=== PATIENT | female | born 1950 | race Caucasian/White ===

== ENCOUNTER → 2023-11-22 08:39 | Outpatient (BNVA) | payer MEDICARE, OTHER, SELFPAY | PROVIDERS: PCP Internal Medicine; Referring Provider Internal Medicine; Visit Provider Student in an Organized Health Care Education/Training Program | DX: M17.11 Unilateral primary osteoarthritis, right knee (principal); M17.12 Unilateral primary osteoarthritis, left knee | CPT/HCPCS: 99203 ==

== ENCOUNTER 2024-01-21 05:06 | Outpatient (CLI) | payer MEDICARE, OTHER, SELFPAY ==
[2024-01-21 10:28] LABS: HCT 42.4 % (36.0-46.0); HGB 14.2 g/dL (11.2-15.7); MCH 32.3 pg (27.0-33.0); MCHC 33.5 % (32.0-36.0); MCV 96 fL (80-95); MPV 10.8 fL (8.0-11.0); Platelet Count 259 10^3/uL (130-400); RDW 12.9 % (11.7-14.6); RDW-SD 46.2 fL; WBC 7.88 10^3/uL (4.4-10.8)
[2024-01-21 11:03] LABS: BUN 16 mg/dL (7-18); CREATININE 0.9 mg/dL (0.55-1.02); Calcium 8.9 mg/dL (8.5-10.1); Chloride 106 mmol/L (98-107); Estimated GFR 66.67 (mL/min/1.73m2); Glucose 97 mg/dL (74-106); Potassium 4.4 mmol/L (3.5-5.1); Sodium 144 mmol/L (136-145)
== END 2024-01-21 05:07 | disposition home or self-care (01) ==
LOC: LBO 05:06
PROVIDERS: PCP Internal Medicine; Visit Provider Student in an Organized Health Care Education/Training Program
DX: M17.12 Unilateral primary osteoarthritis, left knee (principal); Z01.818 Encounter for other preprocedural examination; M17.11 Unilateral primary osteoarthritis, right knee
CPT/HCPCS: 36415; 80048; 85027; 77073

== ENCOUNTER 2024-01-21 15:54 | Outpatient (CLI) | payer MEDICARE, OTHER, SELFPAY ==
--- NOTE | 2024-01-21 09:00 | DI.RAD_ITS ---
Exam(s) XR STANDING ALIGNMENT EXAM: XR STANDING ALIGNMENT CLINICAL HISTORY: TKR Planning. TECHNIQUE: 2D digital imaging was performed. Four images were obtained. COMPARISON: CR XR KNEE 3V BILAT-M2 from 09/21/2023 FINDINGS: BONES: The hips are well maintained. In the right knee, there is moderate narrowing both medially an d laterally. Moderate osteophytes are seen in the lateral femoral tibial joint. In the right knee, there is moderate narrowing of the lateral femoral tibial joint space in addition to osteophytes nicholas inally. Note is again made of a sclerotic lesion in the distal metaphysis of the right femur likely reflecting an enchondroma. The ankles are well maintained.There is no significant leg length discrep hang. SOFT TISSUE: Normal. IMPRESSION: Osteoarthritis of the knees bilaterally. DATA REPOSITORY: RADIATION DOSE DELIVERED:
== END 2024-01-21 15:55 | disposition home or self-care (01) ==
LOC: DIORS 15:55
PROVIDERS: PCP Internal Medicine; Visit Provider Physician Assistant
DX: M17.12 Unilateral primary osteoarthritis, left knee (principal); M17.11 Unilateral primary osteoarthritis, right knee; Z01.818 Encounter for other preprocedural examination
CPT/HCPCS: 77073

== ENCOUNTER 2024-01-30 05:53 | Day surgery (SDC) | payer MEDICARE, OTHER, SELFPAY ==
[2024-01-30] VITALS (14 sets, daily range): BP systolic 103–166; BP diastolic 36–84; PULSE 68–84; RESP 12–22; TEMP 36.3–36.7; O2SAT 94–98; BMI 34.9
[2024-01-30] MEDS: Acetaminophen 500 MG TAB 1000 MG PO (06:30)
[2024-01-30] MEDS: Gabapentin 300 MG CAP PO (06:30)
[2024-01-30] MEDS: Celecoxib 200 MG CAP 400 MG PO (06:30)
[2024-01-30] MEDS: Lactated Ringers 1,000 ML 80 ML IV (06:42)
--- NOTE | 2024-01-30 06:42 | ANES.PREOP_ITS ---
General Info Date of Service Date Performed: 01/30/24 Height: 5 ft 4.5 in Weight: 93.7 kg Body Mass Index (BMI): 34.9 Surgical Procedure: Operation Date: 01/30/24 07:40 Proposed Procedure Side Surgeon p Knee Total Arthroplasty w/OrthAlign, Cementless CR (Possible Cemented) Left Jef Hunt MD Meds Allergies and Home Medications Allergies Allergy/AdvReac Type Severity Reaction Status Date / Time epinephrine AdvReac Other (See Verified 01/30/24 06:14 Comment) topical epinephrine Allergy Other (See Uncoded 01/30/24 06:14 Comment) levofloxacin AdvReac tendonitis Uncoded 01/30/24 06:14 Home Medication Medication Instructions Recorded ascorbic acid (vitamin C) 500 mg 500 mg PO DAILY 11/20/23 tablet coenzyme Q10 100 mg capsule (Co 100 mg PO DAILY 11/20/23 Q-10) multivitamin 1 tab PO DAILY 11/20/23 omega 9-ycn-qxd-fish oil 100 1 cap PO DAILY 11/20/23 mg-160 mg-1,000 mg capsule (Fish Oil) simvastatin 20 mg tablet 20 mg PO DAILY 11/20/23 venlafaxine 37.5 mg 37.5 mg PO DAILY 11/20/23 capsule,extended release 24 hr vitamin B complex 1 tab PO DAILY 11/20/23 vit C,K-Zt-jnlivm-lutein-zeaxan 60 1 cap PO DAILY 11/22/23 mg-13.5 mg-15 mg-2 mg-6 mg capsule (Healthy Eyes Lutein-Zeaxanthin) acetaminophen 500 mg tablet 1,000 mg (2 x 500 mg) PO TID #90 01/30/24 tabs aspirin 81 mg tablet,delayed 81 mg PO BID #60 tabs 01/30/24 release celecoxib 200 mg capsule 200 mg PO BID #60 caps 01/30/24 dexamethasone 4 mg tablet 4 mg PO DAILY #2 tabs 01/30/24 gabapentin 300 mg capsule 300 mg PO QHS #14 caps 01/30/24 hydromorphone 2 mg tablet 1 - 2 mg (0.5 - 1 x 2 mg) PO Q4H 01/30/24 PRN pain #20 tabs pantoprazole 40 mg tablet,delayed 40 mg PO DAILY #30 tabs 01/30/24 release Current Visit Medications: Current Medications Generic Name Dose Route Start Last Admin Trade Name Jeisonq PRN Reason Stop Dose Admin Acetaminophen 1,000 mg 01/30/24 06:00 01/30/24 06:30 Acetaminophen 500 Mg Tab PO 02/29/24 05:59 1,000 mg PREOP CORINE Administration Celecoxib 400 mg 01/30/24 06:00 01/30/24 06:30 Celecoxib 200 Mg Cap PO 02/29/24 05:59 400 mg PREOP CORINE Administration Gabapentin 300 mg 01/30/24 06:00 01/30/24 06:30 Gabapentin 300 Mg Cap PO 02/29/24 05:59 300 mg PREOP CORINE Administration Ringer's Solution 1,000 mls @ 80 mls/hr 01/30/24 06:00 IV 02/28/24 23:59 INFUSION CORINE Cefazolin Sodium/Dextrose 2 gm in 50 mls @ 100 mls/hr 01/30/24 06:00 Ancef Duplex IVPB 02/28/24 23:59 PREOP CORINE Tranexamic Acid/Sodium Chloride 1,000 mg in 100 mls @ 600 mls/hr 01/30/24 06:00 IVPB 02/28/24 23:59 PREOP CORINE IV Miscellaneous Supplies 1 each 01/30/24 06:00 Iv Access IV 02/28/24 23:59 DIRECTED CORINE Sodium Chloride 0 ml 01/30/24 06:00 Normal Saline Flush 10 Ml Syr IV 02/28/24 23:59 PRN PRN Sodium Chloride 0 ml 01/30/24 06:00 Normal Saline 10 Ml Vial IJ 02/28/24 23:59 DIRECTED PRN Sterile Water 0 ml 01/30/24 06:00 Water,Injection,Sterile 10 Ml Vial IJ 02/28/24 23:59 DIRECTED PRN PFSH Active Problems Active Problems: Problem Status Onset Code Osteoarthritis of left knee M17.12 Osteoarthritis of right knee M17.11 Urinary incontinence R32 Sensorineural hearing loss H90.5 Obesity E66.9 Hyperlipidemia E78.5 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 COPD (chronic obstructive pulmonary disease) J44.9 Medical History Medical History Nicotine dependence Allergic rhinitis Surgical History Surgical History (Updated 01/28/24 @ 12:14 by Stevenson Estrada) H/O shoulder surgery (L) History of delivery Hx of tonsillectomy History of right oophorectomy History of appendectomy 1975 History of carpal tunnel release 01/03/13, then again 02/14/13 Tobacco Smoking/Tobacco Use Status: Current every day Tobacco Type: cigarettes Alcohol Alcohol Intake: former Substance Use Substance use: Never Substance use type: does not use Vital Signs and Lab Results Vital Signs Most Recent Vital Signs in EMR: Most Recent Vital Signs Temp Pulse Resp BP Pulse Ox 36.6 C 76 16 123/51 L 97 01/30/24 06:17 01/30/24 06:17 01/30/24 06:17 01/30/24 06:17 01/30/24 06:17 Lab Results Blood Type / Crossmatch: No Data to Display Complete Blood Count: White Blood Count 7.88 10^3/uL (4.4-10.8) 01/21/24 10:16 Red Blood Count 4.40 10^6/uL (3.93-5.22) 01/21/24 10:16 Hemoglobin 14.2 g/dL (11.2-15.7) 01/21/24 10:16 Hematocrit 42.4 % (36.0-46.0) 01/21/24 10:16 Platelet Count 259 10^3/uL (130-400) 01/21/24 10:16 Complete Metabolic Panel: Sodium 144 mmol/L (136-145) 01/21/24 10:16 Potassium 4.4 mmol/L (3.5-5.1) 01/21/24 10:16 Chloride 106 mmol/L (98-107) 01/21/24 10:16 Carbon Dioxide 30.0 mmol/L (21.0-32.0) 01/21/24 10:16 BUN 16 mg/dL (7-18) 01/21/24 10:16 Creatinine 0.9 mg/dL (0.55-1.02) 01/21/24 10:16 Est GFR (CKD-EPI 2020) 66.67 (mL/min/1.73m2) 01/21/24 10:16 Calcium 8.9 mg/dL (8.5-10.1) 01/21/24 10:16 Glucose 97 mg/dL (74-106) 01/21/24 10:16 Liver Function Panel: No Data to Display Coagulation Panel: No Data to Display Cardiac Panel: No Data to Display Arterial Blood Gas: No Data to Display Venous Blood Gas: 2 No Data to Display Pancreas Panel: No Data to Display Thyroid Panel: No Data to Display Infectious Disease: No Data to Display Blood Cultures: No Data to Display Toxicology Panel: No Data to Display Anesthesia Assessment and Plan Anesthesia History Personal History: No History of Anesthesia Complications Family History: No Family History of Anesthesia Complications Exercise Tolerance Exercise Tolerance: Metabolic Equivalents>4 Pertinent Negatives Pertinent Negatives: No Symptoms of GERD, No Major Cardiovascular Symptoms or Complaints and No Major Pulmonary Symptoms or Complaints Cardiac & Pulmonary Exam Cardiac Exam: Normal S1/S2 Heart Sounds Pulmonary Exam: Clear Bilateral Breath Sounds Implantable Cardiac Device Does patient have a Pacemaker or an ICD?: No Airway Exam Known Difficult Airway: No Mallampati Class: 2 Mouth Opening: Normal (> 3cm) Thyromental Distance: Greater than 3 cm Neck Range of Motion: Full ROM Neck Circumference: Normal Teeth Condition: Normal Dentition ASA Classification ASA Score: ASA 2 Emergency Case?: No NPO Status NPO Status: NPO Clears >2 hours, Solids >8 hours Anesthesia Plan Resuscitation Status: Full Code Anesthesia Technique: Spinal Anesthesia Airway Planned: Natural Airway Pain Management: Surgeon and patient request nerve block Monitors Used: Standard Monitors
--- NOTE | 2024-01-30 07:03 | PDOC.DSDIS_ITS ---
Date of service: 01/30/24 Time of Service: 07:03 Discharge Plan Disposition Patient Disposition: Home Condition: Good Discharge Details Reason For Visit: L TKR Attending Provider: Jef Hunt Primary Care Provider: Keke Tuttle Home Meds and New Rx's Prescriptions: New celecoxib 200 mg capsule 200 mg PO BID Qty: 60 0RF aspirin 81 mg tablet,delayed release (DR/EC) 81 mg PO BID Qty: 60 0RF acetaminophen 500 mg tablet 1,000 mg PO TID Qty: 90 3RF pantoprazole 40 mg tablet,delayed release (DR/EC) 40 mg PO DAILY Qty: 30 0RF dexamethasone 4 mg tablet 4 mg PO DAILY Qty: 2 0RF gabapentin 300 mg capsule 300 mg PO QHS Qty: 14 0RF morphine 15 mg tablet 7.5 - 15 mg PO Q4H PRNQty: 18 0RF Continued simvastatin 20 mg tablet 20 mg PO DAILY coenzyme Q10 [Co Q-10] 100 mg capsule 100 mg PO DAILY Fish Oil 100-160-1,000 mg capsule 1 cap PO DAILY multivitamin Tablet 1 tab PO DAILY vitamin B complex Tablet 1 tab PO DAILY ascorbic acid (vitamin C) 500 mg tablet 500 mg PO DAILY venlafaxine 37.5 mg capsule,extended release 24hr 37.5 mg PO DAILY Healthy Eyes Lutein-Zeaxanthin 60 mg-13.5 mg- 15 mg-2 mg-6 mg capsule 1 cap PO DAILY Discontinued aspirin [Adult Aspirin Regimen] 81 mg tablet,delayed release (DR/EC) 81 mg PO DAILY meloxicam 15 mg tablet 15 mg PO DAILY Discharge Instructions Additional Instructions: Total Knee Discharge Instructions Activity: The most important activity is to walk and to work on gentle motion (both flexion and extension). You should try to take short walks a few times a day. It is important that when resting you work on keeping the knee straight. Avoid putting a pillow behind the knee as this will encourage flexion. Work on range of motion exercises as provided by Physical Therapy. - Start outpatient physical therapy within 2 weeks. - You should wear the VANNESSA hose on both legs for 2 weeks. You may remove these at night. You may also use any compression sock in place of the VANNESSA hose. - Utilize [employer] to review exercises, see videos on exercises and obtain basic information pertaining to your surgery and your recovery. Dressing: Remove the Jeff wrap by 2 days after your surgery and put on the VANNESSA stocking given to you from the hospital. Keep the surgical dressing (underneath the JEFF wrap) in place for at least one week. After the first week it may be removed and replaced with light gauze and tape or nothing. The wound and dressing may get wet after 3 days but avoid soaking the dressing or otherwise it will need to be changed. Many people prefer covering the dressing with cling wrap (saran wrap) to minimize it from getting soaked. If it gets wet, just pat dry. If it starts to peel off then it will need to be changed. Medications: - You should take Tylenol and anti-inflammatory Celebrex as your primary pain control medications. If the Celebrex is too expensive or not covered, please call the office for another alternative (Advil/Ibuprofen or Naproxen/Aleve) - You have been prescribed a stronger pain medication Morphine for breakthrough pain, take as needed as prescribed. - You have also been prescribed a stomach acid reduction agent Pantoprozole to help reduce stomach acid and reflux. - You have been prescribed Gabapentin to take at night for restlessness and nerve pain. - You will be taking Aspirin 81mg twice a day for DVT prevention unless instruc vannessa otherwise. - You have also been prescribed Decadron to take to control post-operative nausea and pain. You will start this tomorrow. - If you have constipation you should take Colace or Miralax (both [id number]). It takes most people 3-4 days to have a bowel movement. Follow-up: 2 weeks 02/15/2024 @ 11:00 If you have any acute concerns or questions, please do not hesitate to contact the office at [phone]. You may contact Dr. Hunt with any questions after hours through the hospital at [phone] or on his cell phone at [phone]. Stand Alone Forms: Anesthesia Discharge Inst., Kevin.Nerve Block Instructions, Rony Bradshaw ([facility]) Referrals: Jef Hunt MD [ [facility] STAFF PHYSICIAN] - Equipment/Supplies: Walker Activity:: Activity as Tolerated Shower/Bathe:: 72 hours Diet:: As Tolerated Discharge Orders Discharge Orders: Discharge Order (Routine); Ordered 01/30/24 Ordered By: Jef G Prohaska DS: Diagnosis Discharge Diagnosis (1) Osteoarthritis of left knee: Status: Acute
[2024-01-30] MEDS: ceFAZolin 2 GM/50 ML BAG IVPB (07:47)
[2024-01-30] MEDS: TRANEXAMIC ACID/SOD. CHL. 1,000 MG/100 ML BAG 600 MG IVPB (07:52)
--- NOTE | 2024-01-30 08:38 | W.ANESNERVE ---
Nerve Block Single Injection Procedure Date and Time Date Performed: 01/30/24 Procedure Start: 07:18 Location Where Procedure Performed Procedure Location: Day Surgery Unit Reason Performed: Postoperative Analgesia Requesting Provider: Jef Hunt Timeout Performed Timeout Performed: Yes Monitoring Used ECG, Blood Pressure, SpO2 and See EMR for corresponding vital signs Sterility Sterility: Hand Hygiene, Surgical Cap, Surgical Mask, Sterile Gloves and Chlorhexidine Sedation Given During Procedure Sedation Given (Indicate Dose Given): Versed IV Dose:: 2mg Patient Mental Status Patient Mental Status: Awake Nerve Block 1st Nerve Block: Laterality: Left Block Type: Adductor Canal Ultrasound Image Saved?: Yes Needle / Catheter Used: 100mm SonoPlex II Local Anesthetic Bolus (Indicate Dose Given): Lidocaine used for local infiltration of skin, Injected in 3-5ml increments after negative blood aspiration and Bupivacaine 0.25% Dose:: 15mL Additives (Indicate Dose Given): None Ultrasound: Not Used Nerve Stimulator: Supplement to Ultrasound use and No twitch or parasthesia noted < 0.5 mA Paresthesia: None Procedure Tolerated: No Complications Procedure Outcome: Successful Performed By: Chloe Grady
--- NOTE | 2024-01-30 09:46 | W.PM.OP ---
Date of service: 01/30/24 Time of Service: 07:45 Operative Note Operative Note DATE OF PROCEDURE: 01/30/24 PRE-OP DIAGNOSIS: Left Knee Osteoarthritis with Valgus Deformity POST-OP DIAGNOSIS: same PROCEDURE: Left Total Knee Replacement with Intraoperative Navigation SURGEON: Jef Hunt CLINICAL NURSE EDUCATOR: Juan Carballo ANESTHESIA TYPE: Spinal Refer to Anesthesia Record ESTIMATED BLOOD LOSS: 100 PATHOLOGY: none sent TOURNIQUET TIME: 0 COMPLICATIONS: None Patient was transported to: PACU Patient's condition: stable Implants: 1. Depuy Attune Cementless Cruciate Retaining Femoral Component, Size 6 2. Depuy Attune Cementless Fixed Bearing Tibial Component, Size 5 3. Depuy Attune 6x7 CR/FB Poly 4. Depuy Attune Patellar Component, Size 35 Indications: I have seen Deirdre in clinic for symptoms of LEFT knee arthritis, confirmed with radiographic findings. Deirdre has exhausted nonoperative methods and was having significant limitations in daily function and desired better function and less pain. I discussed the technical details of a knee replacement. I explained the risks of the procedure to include, but not limited to, bleeding, infection, pain, stiffness, fracture, damage to nerves and vessels, damage to muscles and tendons, loosening, need for repeat procedure, blood clot and cardiopulmonary demise. Despite these risks, she elected to proceed. Findings: There was significant signs of arthritis throughout the knee involving all 3 compartments with depression of the posterolateral tibial plateau. Procedure Description: Deirdre was greeted in the preoperative holding area where the correct side was identified and marked. The consent was reviewed with the patient and signed. The history and physical was updated. All questions were answered. Preoperative mediacations were administered: Acetaminophen 1000mg, Celebrex 400mg, and Gabapentin 300mg. An adductor canal block was then administered by the anesthesia team in the PACU. She was taken back to the operating room. A spinal anesthestic was then administered. The patient was placed into the supine position on the operating room table. During positioning and draping she became very agitated and anxious which required additional anesthesia despite having an active spinal. THen, posts were placed for positioning during the procedure. All bony prominences were well padded. Prophylactic antibiotics in the form of Cefazolin were administered. 1g of Tranxemic Acid was given intravenously within 30 minutes of incision. The left leg was then prepped with Chloraprep and draped in a standard fashion with impervious stockinette. A second prep with Chloraprep was performed prior to application of Iodine impregnated skin protection. A timeout to confirm correct identity, side and site, procedure, allergies, anesthesia, and medical concerns was performed. With the knee in some flexion, a midline incision was made overlying the knee. Full thickness skin flaps were raised once the extensor mechanism was encountered. These were raised medially and laterally. Any bleeding was controlled with electrocautery. Once the extensor mechanism was fully exposed, a medial parapatellar arthrotomy was performed in a flexed position. All bleeding from the arthrotomy and the geniculate arteries was coagulated. A medial subperiosteal peel was performed with electrocautery to the midcoronal plane. The fat pad was removed while keeping the patellar tendon protected. The anterior distal femur synovium was removed for later visualization. The ACL and PCL were resected and the anterior horn of the lateral meniscus was transected. The knee was then flexed with the patella everted. Large osteophytes from the tibia were removed. Large osteophytes from the femur were removed. A single starting pin was then placed 1cm anterior to the PCL insertion and the notch in the direction of the femoral head. The OrthoAlign device was applied over the pin. It was oriented to be in line with the epicondylar axis and the trochlear groove. It was then pinned into place. The navigation computer was then turned on and calibrated. The distal femur cut was set at 0 degrees varus and 3.5 degrees flexion. The distal femur cutting guide then was positioned for a 9mm cut. The distal femur was cut with an oscillating saw while protecting the soft tissues. The tibia was then addressed. The OrthoAlign device was placed over the tibial tubercle and medial tibia and secured into position. Once again, OrthoAlign was calibrated and then set for a 1 degree varus cut and 5 degrees of posterior slope. With this locked into position, the cut thickness stylus was used to assess cut thickness. The lateral side, most involved side, was set for a 3mm cut. This was then held in position and pinned into place with 2 additional pins and a cross pin for stability. The medial and lateral collateral ligaments were protected and the cut was performed. With this completed, it was assessed and noted to be of appropriate dimensions. The guide and OrthoAlign was removed. A spacer block was inserted and the knee was brought into extension to ensure enough space was present. . The Orthoalign gap balancing device was then placed in extension. This was used to ensure that the ligaments were properly balanced with up to 2 to 3 mm laxity laterally compared medially. The extension gap was measured as 18mm. The knee was then brought into 90 degrees of flexion and the ligament senior systems engineer was once again placed. Under the same amount of force the flexion gap was measured. The Attune specific jig was placed and the flexion gap was made to match the extension gap. The femur was then sized as a size 6. The 4-in-1 cutting guide was the placed. An crow wing was used to confirm appropriate position of the anterior cut to avoid notching. This cutting guide was ensured to be flush on the cut surface and then pinned into place with headed pins. While protecting the soft tissues, quad tendon, and collateral ligaments, the anterior and posterior cuts were performed with a saw. The central two pins were removed and the posterior and anterior chamfers were cut next. The notch-cutting guide was placed. This was pinned to lateralize the femoral component as much as possible while keeping it flush on the cut surface. This was then pinned into position. A saw was used to make the notch cut. A rasp smoothed the cut surfaces. The medial and lateral menisci were removed. A trial femoral component was then inserted, impacted down to the cut surfaces, and the lug holes were drilled. A provisional trial tibial component was placed and the knee was brought through range of motion. The polyethylene was trialed until there was good flexion and extension with excellent stability to the medial and lateral collaterals. The patella was tracking without thumbs. A size 7mm polyethylene component provided the best range of motion and stability with less than 2mm gapping with medial and lateral stress and full extension without significant hyperextension. The tibial cut surface was fully exposed. The tibia was then sized as a 5. The tibia had been previously marked during trialing to correspond to the center of the tibial component to help with rotation. The trial was aligned to this juan, approximately rotated to the medial 1/3rd of the tibial tubercle. The trial was pinned into place. The tibia was prepared with a reamer and a keel punch and lug holes. The knee was then brought into extension and the patella was measured as 21mm. Using the patellar clamp and cut guide, this was resected to a flat surface with at least 13mm of thickness remaining. The size 35 patella fit the best. This was oriented and then clamped into position. The lugs were drilled. The trial components were removed. The final components were opened on the back table. The periosteal and capsular tissues, especially posteriorly, around the knee were then systematically injected with a periarticular cocktail consisting of 246mg of Ropivacaine, 0.5mg of Epinephrine, 0.08mg of Clonidine, and 30mg of Ketorolac, diluted to 100cc. On the back table, with the implants opened, the cement was mixed. One batch of high viscosity cement was prepared with vacuum assistance. After the cement was ready a small amount was placed on the cut surface of the patella and the patellar button was clamped into position and held. While the cement was hardening, the cementless knee components were placed. Starting with the tibial component, the tibia was subluxed anteriorly and the lug holes of the component were lined up. The tibia was then impacted with an impactor and mallet until the tibial component was in contact with the tibia. Then, the femoral component was inserted. The lug holes were aligned and the component was impacted into position. The final polyethylene component was inserted. The knee was irrigated with Surgiphor Betadine solution. This was allowed to sit in the knee for 3 minutes and then it was thoroughly irrigated out with saline. After the cement had finally cured, approximately 15min, the clamp was removed from the patella and the knee was taken through range of motion. The patella was tracking with a no-thumbs technique. The capsule was then reapproximated with a No. 1 Vicryl at multiple locations. The capsule was finally closed with a No. 2 Stratafix, barbed suture. Deep tissues were then reapproximated with 0 Vicryl and 2-0 Vicryl. The skin was closed with a running 3-0 Monocryl in a subcuticular fashion. This was reinforced with skin glue. A Mepilex silver dressing was applied along with a ikdd-hk-sonoc MITUL wrap. A CryoCuff was applied. Deirdre was transferred to the hospital bed without difficulty an suffering no apparent complication. She has a good prognosis. Physical therapy will start today and without restrictions, weight-bearing as tolerated. Aspirin 81mg BID will be used for DVT prophylaxis.
[2024-01-30] MEDS: fentaNYL 100 MCG/2 ML VIAL IVP ×2 (09:49→09:55)
[2024-01-30] MEDS: HYDROmorphone 2 MG/ML SYR IVP (10:08)
[2024-01-30] MEDS: LORazepam 2 MG/ML VIAL 0.5 MG IVP ×2 (10:22→10:36)
--- NOTE | 2024-01-30 13:24 | W.ANESPOSTOP ---
Postoperative Evaluation Date, Time and Location Date Performed: 01/30/24 Time Performed: 13:20 Patient Location: Day Surgery Unit Vital Signs Most Recent Imported Vital Signs: Most Recent Vital Signs Temp Pulse Resp BP Pulse Ox 36.3 C L 68 16 115/62 94 01/30/24 12:18 01/30/24 12:18 01/30/24 12:18 01/30/24 12:18 01/30/24 12:18 Pain Score Most Recent Pain Score: Most Recent Pain Score Pain Level 5 01/30/24 12:18 Assessment Mental Status: Awake (Alert & Oriented to Patient Baseline) Airway and Respiratory Function: Patent airway with normal (patient baseline) respiratory exam Cardiovascular Function: Hemodynamically Stable Hydration Status: Adequately Hydrated Nausea & Vomiting: No Nausea or Vomiting Pain: Pain is tolerable per patient Peripheral Nerve Block: Regional nerve block not resolved at time of post operative discharge
--- NOTE | 2024-01-30 14:18 | PT.INIE ---
PT Notes Visit Reasons: L TKR Physical Therapy Inpatient Initial Evaluation Date: 01/30/2024 Referring Doctor: [facility] PT Orders: PT CONSULT: S/P Ortho Surgery Precautions: Fall. Standard precautions. WBAT on the left LE with AD. Patient Profile/Admitting Diagnosis: Zohra is a 73-year-old female with primary unilateral osteoarthritis of the left knee and status post left total knee arthroplasty on postoperative day 0. PMHX: Medical History (Updated 11/22/23 @ 09:21 by ISH Cruz) Nicotine dependence Allergic rhinitis Surgical History (Updated 11/20/23 @ 11:30 by Edgar Mchugh RN) H/O shoulder surgery History of delivery Hx of tonsillectomy History of right oophorectomy History of appendectomy 1975 History of carpal tunnel release 01/03/13, then again 02/14/13 Social History/Home Situation: Lives with nephew in a private home with one half step to enter without rails. Independent with all aspects of ADLs prior to surgery although has had worsening difficulty due to progressing arthritis. Equipment Owned/DME: Worn0 out and old FWW (requested a brand new one from Nurse Blanco today to take home) Subjective: Per nurse Castañeda patient has had morphine earlier. Sleepy, had to be woken up to participate in PT. Full awake with ambulation activity. One episode of vomiting after walking activity. Nurse Blanco present to provided needed intevention for patient. Objective: General Observation: Lethargic at the outset. Became fully awaake Mental Status: Lethargic but oriented as to person, place, time, and purpose. Able to pay attention but needed frequent redirection to tas due to lethargy Pain: 09/26 on the L knee Vital Signs: WNL as closely monitored by Nurse Blanco ROM: Right Lower Extremity: Hip flexion WFL. Hip abduction WFL. Knee flexion WFL. Ankle dorsiflexion WFL. Ankle plantarflexion WFL. Left Lower Extremity: Hip flexion WFL. Hip abduction WFL. Knee flexion 20 degrees to 90 degrees ACTIVELY while seated at edge of bed. Knee extension -20 degrees. Ankle dorsiflexion WFL. Ankle plantarflexion WFL. Strength: Right Lower Extremity: Hip flexors 5/5. Hip abductors 5/5. Knee flexors 5/5. Knee extensors 5/5. Ankle dorsiflexors 5/5. Ankle plantarflexors 5/5. Left Lower Extremity: Hip flexors 4/5. Hip abductors 4/5. Knee flexors 3-/5. Knee extensors 3-/5. Ankle dorsiflexors 4/5. Ankle plantarflexors 4/5. Bed Mobility/Transfers: Minimal cueing provided for use of B hands as needed for support, movement sequence, AD management, and posture to reduce fall risk and minimize pain report Supine to sit stand by assist Sit to stand minimal assist of PT and stand by assist if Nurse Francis with FWW Stand to sit stand by assist with FWW Bed to reclining chair stand by assist using FWW Gait: Facilitated safe and correct performance of level surface ambulation covering a distance of 150 feet using front wheeled walker with step to gait pattern and contact-guard assist of PT as well as wheelchair followed by nurse Blanco for safety. Maximal verbal and tactile cues provided for continued attention to task, AD management, safe movement sequence, and posture to minimize pain report and reduce fall risk. Balance: Static Sitting: Normal Dynamic Sitting: Normal Static Standing: Fair Dynamic Standing: Fair Special Tests: Mobility Limitations Standardized Measure [facility] AM-PAC 6 clicks Basic Mobility Inpatient Short Form: Raw Score: 20 CMS Score: 36% deficit Informed Consent/Education: Patient was instructed in purpose of PT consult and plan of care. Agreeable to proceed with established PT POC to achieve personal goals. Trained patient with correct performance of exercises below to maximize motor control, joint flexibility, soft tissue extensibility of the L knee musculature: Access Code: [email or web address] URL: [email or web address] Date: 01/30/2024 Prepared by: Crissy Wagner Exercises - Supine Quad Set - 1 x daily - 7 x weekly - 1 sets - 10 reps - 5 hold - Supine Heel Slide - 1 x daily - 7 x weekly - 1 sets - 10 reps - 5 hold - Supine Ankle Pumps - 1 x daily - 7 x weekly - 1 sets - 10 reps - 5 hold - Small Range Straight Leg Raise - 1 x daily - 7 x weekly - 1 sets - 10 reps - 5 hold - Seated March - 1 x daily - 7 x weekly - 1 sets - 10 reps - 5 hold Assessment: Patient requires use of a front wheel walker and assistance of 1 caregiver using front wheeled walker to maximize independence and reduce fall risk. Patient presents with clinical signs and symptoms consistent with current/admitting diagnoses that have resulted to mobility limitations, gait instability, generalized weakness, and overall ADL decline as demonstrated by the following impairment level findings: 1. Decreased strength to L knee major muscle groups 2. Impaired sitting/standing balance 3. Impaired activity tolerance 4. Limitation of joint range of motion in L knee 5. Drowsiness Impairments are contributing to the following functional limitations: 1. Decline in bed mobility skills 2. Decline in transfer skills 3. Difficulty with ambulation without assistive device and physical assistance 4. Increased completion time for mobility ADL performance 5. Increased risk for falls 6. Difficulty with managing steps alone safely Patient is assessed as a 72503 moderate complexity based on the following: History: 73-year-old female with past medical history as indicated above Examination: Demonstrable impairment in strength, balance, and mobility level with underlying impairments and functional limitations as exhibited above as well as deficit score of 36% utilizing the [facility] Mobility Inpatient Short Form Presentation: Evolving Decision Makin moderate complexity Goals: N/A. PT evaluation and 1 treatment session only for functional mobility and HEP education/training. Plan of Care/Treatment Plan: N/A. PT evaluation and 1 treatment session only for functional mobility and HEP education/training. DISCHARGE RECOMMENDATIONS: [] Home with no services [] [] Home with services [specify] [X] Home with outpatient PT. home when medically cleared by orthopedic surgeon. Recommend outpatient PT services in order to optimize functional mobility outcomes and facilitate return to independent community ambulation without an assistive device. [] SNF for continued rehabilitation [] [] [facility] [] [] SNF versus LTC based on ability to participate and progress [] TREATMENT CODE/TIME: 9716 2 x 20 minutes for 1 unit, 9753 0 x 10 minutes for 1 unit (13:35-14:05). Thank you for this referral. Please do not hesitate to contact me with any questions or concerns regarding this patient's plan of care. Please sign and return this page within 14 days if you agree with the above POC. Thank you! Referring Physician's Signature Date [facility] Crissy Wagner PT, DPT, CLT [facility] [place], [place]
== END 2024-01-30 14:36 | disposition home or self-care (01) ==
PROVIDERS: PCP Internal Medicine; Visit Provider Student in an Organized Health Care Education/Training Program
PROC: (CPT 27447; principal; 2024-01-30 07:30)
DX: M17.12 Unilateral primary osteoarthritis, left knee (principal); E66.9 Obesity, unspecified; E78.5 Hyperlipidemia, unspecified; J44.9 Chronic obstructive pulmonary disease, unspecified; F17.210 Nicotine dependence, cigarettes, uncomplicated
CPT/HCPCS: 20985; 27447; C1776; 76942; 97162; 97530; J0665; J0690; J1170; J2001; J2060; J2250; J2371; J2401; J2405; J2704; J3010

== ENCOUNTER 2024-02-15 11:03 | Outpatient (CLI) | payer MEDICARE, OTHER, SELFPAY ==
--- NOTE | 2024-02-15 10:45 | DI.RAD_ITS ---
Exam(s) XR KNEE LT 1V XR STANDING ALIGNMENT EXAM: XR STANDING ALIGNMENT and XR knee LT 1 V CLINICAL HISTORY: F/U LEFT TKR. TECHNIQUE: 2D digital imaging was performed. Five images were obtained. COMPARISON: CR XR KNEE 3V BILAT-M2 from 09/21/2023 CR XR STANDING ALIGNMENT from 01/21/2024 FINDINGS: BONES: The hips are well maintained. The patient has a left total knee replacement. The orthopedic hardware appears in good position. No suspicious lucencies are seen in or about the orthopedic hardw are. In the right knee, there is moderate narrowing of both the medial lateral femoral tibial joint. Osteophytes are seen in the lateral femoral tibial joint. There is a stable sclerotic lesion in th e distal metaphysis of the right femur which may represent a benign lesion such as a enchondroma. Th e ankles are well maintained.There is no significant leg length discrepancy. SOFT TISSUE: Normal. IMPRESSION: Stable left total knee replacement. DATA REPOSITORY: RADIATION DOSE DELIVERED:
== END 2024-02-15 11:04 | disposition home or self-care (01) ==
LOC: DIORS 11:05
PROVIDERS: PCP Internal Medicine; Referring Provider Internal Medicine
DX: Z96.652 Presence of left artificial knee joint (principal); Z47.1 Aftercare following joint replacement surgery
CPT/HCPCS: 73560; 77073

== ENCOUNTER → 2024-03-10 10:41 | Outpatient (BNVA) | payer MEDICARE, OTHER, SELFPAY | PROVIDERS: PCP Internal Medicine; Visit Provider Student in an Organized Health Care Education/Training Program | DX: Z47.1 Aftercare following joint replacement surgery (principal); Z96.652 Presence of left artificial knee joint ==

== ENCOUNTER → 2024-04-21 10:21 | Outpatient (BNVA) | payer MEDICARE, OTHER, SELFPAY | PROVIDERS: PCP Internal Medicine; Referring Provider Internal Medicine; Visit Provider Student in an Organized Health Care Education/Training Program | DX: Z47.1 Aftercare following joint replacement surgery (principal); M17.11 Unilateral primary osteoarthritis, right knee; Z96.652 Presence of left artificial knee joint ==

== ENCOUNTER 2024-04-21 18:45 | Outpatient (CLI) | payer MEDICARE, OTHER, SELFPAY ==
[2024-04-21 12:22] LABS: HCT 41.6 % (36.0-46.0); HGB 13.3 g/dL (11.2-15.7); MCH 31.4 pg (27.0-33.0); MCV 98 fL (80-95); MPV 11.1 fL (8.0-11.0); Platelet Count 256 10^3/uL (130-400); RBC 4.24 10^6/uL (3.93-5.22); RDW 14.5 % (11.7-14.6); RDW-SD 52.8 fL; WBC 7.08 10^3/uL (4.4-10.8)
[2024-04-21 13:02] LABS: Anion Gap 6.2 mmol/L (3-11); BUN 11 mg/dL (7-18); CO2 28.8 mmol/L (21.0-32.0); CREATININE 0.8 mg/dL (0.55-1.02); Calcium 9.6 mg/dL (8.5-10.1); Chloride 105 mmol/L (98-107); Estimated GFR 76.79 (mL/min/1.73m2); Glucose 87 mg/dL (74-106); Potassium 4.4 mmol/L (3.5-5.1); Sodium 140 mmol/L (136-145)
== END 2024-04-21 18:46 | disposition home or self-care (01) ==
LOC: LBO 18:46
PROVIDERS: PCP Internal Medicine; Visit Provider Student in an Organized Health Care Education/Training Program
DX: M17.11 Unilateral primary osteoarthritis, right knee (principal); Z01.818 Encounter for other preprocedural examination
CPT/HCPCS: 36415; 80048; 85027

== ENCOUNTER 2024-04-29 10:29 | Inpatient (IN) | payer MEDICARE, OTHER, SELFPAY ==
[2024-04-29] VITALS (30 sets, daily range): BP systolic 120–181; BP diastolic 45–157; PULSE 59–246; RESP 11–30; TEMP 35.8–36.5; O2SAT 92–98; BMI 33.0
[2024-04-29] MEDS: Lactated Ringers 1,000 ML 80 ML IV (10:54)
[2024-04-29] MEDS: Acetaminophen 500 MG TAB 1000 MG PO ×2 (10:55→19:40)
[2024-04-29] MEDS: Gabapentin 300 MG CAP PO ×2 (10:56→19:39)
--- NOTE | 2024-04-29 11:37 | W.ANESPRE ---
General Info Date of Service Date Performed: 04/29/24 Height: 5 ft 4.5 in Weight: 88.6 kg Body Mass Index (BMI): 33.0 Surgical Procedure: Operation Date: 04/29/24 14:10 Proposed Procedure Side Surgeon p Knee Total Arthroplasty w/OrthAlign, Cementless CR possible cemented Right Jef Hunt MD Meds Allergies and Home Medications Allergies Allergy/AdvReac Type Severity Reaction Status Date / Time epinephrine AdvReac Other (See Verified 04/29/24 10:58 Comment) topical epinephrine Allergy Other (See Uncoded 04/29/24 10:58 Comment) levofloxacin AdvReac tendonitis Uncoded 04/29/24 10:58 Home Medication ?Medication ?Instructions ?Recorded ascorbic acid (vitamin C) 500 mg 500 mg PO DAILY 11/20/23 tablet coenzyme Q10 100 mg capsule (Co 100 mg PO DAILY 11/20/23 Q-10) multivitamin 1 tab PO DAILY 11/20/23 omega 7-uwq-lbg-fish oil 100 1 cap PO DAILY 11/20/23 mg-160 mg-1,000 mg capsule (Fish Oil) simvastatin 20 mg tablet 20 mg PO DAILY 11/20/23 venlafaxine 37.5 mg 37.5 mg PO DAILY 11/20/23 capsule,extended release 24 hr vitamin B complex 1 tab PO DAILY 11/20/23 vit C,F-Zw-mcumqn-lutein-zeaxan 60 1 cap PO DAILY 11/22/23 mg-13.5 mg-15 mg-2 mg-6 mg capsule (Healthy Eyes Lutein-Zeaxanthin) ondansetron 4 mg disintegrating 4 mg PO Q6H PRN nausea and 02/05/24 tablet vomiting #20 tabs lorazepam 0.5 mg tablet 0.5 mg PO BID PRN anxiety #14 tabs 02/25/24 Current Visit Medications: Current Medications Generic Name Dose Route Start Last Admin Trade Name Freq PRN Reason Stop Dose Admin Acetaminophen 1,000 mg 04/29/24 06:00 04/29/24 10:55 Acetaminophen 500 Mg Tab PO 04/29/24 23:59 1,000 mg PREOP CORINE Administration Acetaminophen 1,000 mg 04/29/24 14:00 Acetaminophen 500 Mg Tab PO 05/29/24 13:59 TID CORINE Ascorbic Acid 500 mg 04/30/24 08:30 Ascorbic Acid 500 Mg Tab PO 05/30/24 08:29 DAILY [facility] Aspirin 81 mg 04/29/24 20:00 Aspirin E.C. 81 Mg Tabec PO 05/29/24 19:59 BID [facility] Celecoxib 400 mg 04/29/24 06:00 Celecoxib 200 Mg Cap PO 04/29/24 23:59 PREOP CORINE Celecoxib 200 mg 04/29/24 20:00 Celecoxib 200 Mg Cap PO 05/29/24 19:59 BID [facility] Dexamethasone 4 mg 04/30/24 08:30 Dexamethasone 4 Mg Tab PO 05/01/24 08:31 DAILY [facility] Docusate Sodium 100 mg 04/29/24 10:29 Docusate Sodium 100 Mg Cap PO 05/29/24 10:28 BID PRN PRN Constipation Droperidol 0.625 mg 04/29/24 10:36 Droperidol 5 Mg/2 Ml Vial IVP 05/29/24 10:35 DIRECTED PRN Nausea Ephedrine Sulfate 0 mg 04/29/24 10:36 Ephedrine 25 Mg/5 Ml Syringe IVP 05/29/24 10:35 DIRECTED PRN Fentanyl 0 mcg 04/29/24 10:36 Fentanyl 100 Mcg/2 Ml Vial IVP 05/29/24 10:35 DIRECTED PRN Fish Oil 1,000 mg 04/30/24 08:30 [place]-3 Fatty Acids 1000 Mg Cap PO 05/30/24 08:29 DAILY [facility] Gabapentin 300 mg 04/29/24 06:00 04/29/24 10:56 Gabapentin 300 Mg Cap PO 04/29/24 23:59 300 mg PREOP CORINE Administration Gabapentin 300 mg 04/29/24 20:00 Gabapentin 300 Mg Cap PO 05/29/24 19:59 HS [facility] Hydromorphone HCl 0.5 mg 04/29/24 10:29 Hydromorphone 2 Mg/Ml Syr IVP 05/29/24 10:28 Q2H PRN PRN Hydromorphone HCl 0 mg 04/29/24 10:36 Hydromorphone 2 Mg/Ml Syr IVP 05/29/24 10:35 DIRECTED PRN Ringer's Solution 1,000 mls @ 80 mls/hr 04/29/24 06:00 04/29/24 10:54 IV 04/29/24 23:59 80 mls/hr INFUSION CORINE Administration Cefazolin Sodium/Dextrose 2 gm in 50 mls @ 100 mls/hr 04/29/24 06:00 Ancef Duplex IVPB 04/29/24 23:59 PREOP CORINE Tranexamic Acid/Sodium Chloride 1,000 mg in 100 mls @ 600 mls/hr 04/29/24 06:00 IVPB 04/29/24 23:59 PREOP CORINE Cefazolin Sodium/Dextrose 1 gm in 50 mls @ 100 mls/hr 04/29/24 12:00 Ancef Duplex IVPB 04/30/24 04:29 Q8H CORINE IV Miscellaneous Supplies 1 each 04/29/24 06:00 Iv Access IV 04/29/24 23:59 DIRECTED CORINE Lorazepam 0.5 mg 04/29/24 10:32 Lorazepam 0.5 Mg Tab PO 05/29/24 10:31 BID PRN PRN anxiety Multivitamins 1 tab 04/30/24 08:30 Multivitamin Tab PO 05/30/24 08:29 DAILY [facility] Naloxone HCl 0 mg 04/29/24 10:36 Naloxone 0.4 Mg/Ml Vial IVP 05/29/24 10:35 PRN PRN Non-Formulary Medication 100 mg 04/30/24 08:30 Coenzyme Q10 [Co Q-10] PO 05/30/24 08:29 DAILY [facility] Non-Formulary Medication 1 cap 04/30/24 08:30 Vit C,V-Rt-Emzzh-Lutein-Zeaxan [Healthy Eyes Lutein-Zeaxanthin] PO 05/30/24 08:29 DAILY [facility] Non-Formulary Medication 1 tab 04/30/24 08:30 Vitamin B Complex PO 05/30/24 08:29 DAILY [facility] Ondansetron HCl 4 mg 04/29/24 10:29 Ondansetron 4 Mg/2 Ml Vial IVP 05/29/24 10:28 Q6H PRN PRN Nausea Ondansetron HCl 4 mg 04/29/24 10:32 Ondansetron O.D.T. 4 Mg Tabef PO 05/29/24 10:31 Q6H PRN PRN nausea and vomiting Pantoprazole Sodium 40 mg 04/30/24 07:30 Pantoprazole 40 Mg Tabcr PO 05/30/24 07:29 DAILY@0730 [facility] Polyethylene Glycol 17 gm 04/29/24 10:29 Polyethylene Glycol 3350 17 Gm Packet PO 05/29/24 10:28 BID PRN PRN Constipation Simvastatin 20 mg 04/29/24 20:00 Simvastatin 20 Mg Tab PO 05/29/24 19:59 QPM CORINE Sodium Chloride 0 ml 04/29/24 06:00 Normal Saline Flush 10 Ml Syr IV 04/29/24 23:59 PRN PRN Sodium Chloride 0 ml 04/29/24 06:00 Normal Saline 10 Ml Vial IJ 04/29/24 23:59 DIRECTED PRN Sterile Water 0 ml 04/29/24 06:00 Water,Injection,Sterile 10 Ml Vial IJ 04/29/24 23:59 DIRECTED PRN Venlafaxine HCl 37.5 mg 04/30/24 08:30 Venlafaxine 37.5 Mg Capcr PO 05/30/24 08:29 DAILY [facility] PFSH Active Problems Active Problems: Problem Status Onset Code Osteoarthritis of right knee Acute M17.11 Urinary incontinence Acute R32 Sensorineural hearing loss Acute H90.5 Obesity Chronic E66.9 Hyperlipidemia Acute E78.5 Diverticular disease of colon Acute K57.30 COPD (chronic obstructive pulmonary disease) Chronic J44.9 Medical History Medical History Nicotine dependence Allergic rhinitis Surgical History Surgical History History of total left knee replacement (01/30/24) H/O shoulder surgery (L) History of delivery Hx of tonsillectomy History of right oophorectomy History of appendectomy 1975 History of carpal tunnel release 01/03/13, then again 02/14/13 Tobacco Smoking/Tobacco Use Status: Current every day Tobacco Type: cigarettes Alcohol Alcohol Intake: former Substance Use Substance use: Never Substance use type: does not use Vital Signs and Lab Results Vital Signs Most Recent Vital Signs in EMR: Most Recent Vital Signs Temp Pulse Resp BP Pulse Ox 35.8 C L 82 16 133/56 L 98 04/29/24 10:20 04/29/24 10:20 04/29/24 10:20 04/29/24 10:20 04/29/24 10:20 Lab Results Blood Type / Crossmatch: No Data to Display Complete Blood Count: White Blood Count 7.08 10^3/uL (4.4-10.8) 04/21/24 11:43 Red Blood Count 4.24 10^6/uL (3.93-5.22) 04/21/24 11:43 Hemoglobin 13.3 g/dL (11.2-15.7) 04/21/24 11:43 Hematocrit 41.6 % (36.0-46.0) 04/21/24 11:43 Platelet Count 256 10^3/uL (130-400) 04/21/24 11:43 Complete Metabolic Panel: Sodium 140 mmol/L (136-145) 04/21/24 11:43 Potassium 4.4 mmol/L (3.5-5.1) 04/21/24 11:43 Chloride 105 mmol/L (98-107) 04/21/24 11:43 Carbon Dioxide 28.8 mmol/L (21.0-32.0) 04/21/24 11:43 BUN 11 mg/dL (7-18) 04/21/24 11:43 Creatinine 0.8 mg/dL (0.55-1.02) 04/21/24 11:43 Est GFR (CKD-EPI 2020) 76.79 (mL/min/1.73m2) 04/21/24 11:43 Calcium 9.6 mg/dL (8.5-10.1) 04/21/24 11:43 Glucose 87 mg/dL (74-106) 04/21/24 11:43 Liver Function Panel: No Data to Display Coagulation Panel: No Data to Display Cardiac Panel: No Data to Display Arterial Blood Gas: No Data to Display Venous Blood Gas: No Data to Display Pancreas Panel: No Data to Display Thyroid Panel: No Data to Display Infectious Disease: No Data to Display Blood Cultures: No Data to Display Toxicology Panel: No Data to Display Anesthesia Assessment and Plan Anesthesia History Personal History: No History of Anesthesia Complications Family History: No Family History of Anesthesia Complications Exercise Tolerance Exercise Tolerance: Metabolic Equivalents>4 Pertinent Negatives Pertinent Negatives: No Symptoms of GERD, No Major Cardiovascular Symptoms or Complaints and No Major Pulmonary Symptoms or Complaints Cardiac & Pulmonary Exam Cardiac Exam: Normal S1/S2 Heart Sounds Pulmonary Exam: Clear Bilateral Breath Sounds Implantable Cardiac Device Does patient have a Pacemaker or an ICD?: No Airway Exam Known Difficult Airway: No Mallampati Class: 2 Mouth Opening: Normal (> 3cm) Thyromental Distance: Greater than 3 cm Neck Range of Motion: Full ROM Neck Circumference: Normal Teeth Condition: Normal Dentition ASA Classification ASA Score: ASA 2 Emergency Case?: No NPO Status NPO Status: NPO Clears >2 hours, Solids >8 hours Anesthesia Plan Resuscitation Status: Full Code Anesthesia Technique: Spinal Anesthesia Airway Planned: Natural Airway Pain Management: Surgeon and patient request nerve block Monitors Used: Standard Monitors
--- NOTE | 2024-04-29 12:53 | W.PM.OP ---
Date of service: 04/29/24 Time of Service: 12:53 Operative Note Operative Note PRE-OP DIAGNOSIS: Right Knee Osteoarthritis POST-OP DIAGNOSIS: same PROCEDURE: Right Total Knee Replacement with Intraoperative Navigation SURGEON: Jef Hunt STATEMENT CLERKS MANAGER: Bindu Aj ANESTHESIA TYPE: Spinal Refer to Anesthesia Record PATHOLOGY: none sent TOURNIQUET TIME: 0 COMPLICATIONS: None Patient was transported to: PACU Patient's condition: stable Implants: 1. Depuy Attune Cementless Cruciate Retaining Femoral Component, Size 6 2. Depuy Attune Cementless Fixed Bearing Tibial Component, Size 5 3. Depuy Attune 6x7 CR/FB Poly 4. Depuy Attune Patellar Component, Size 35 Indications: I have seen Deirdre in clinic for symptoms of RIGHT knee arthritis, confirmed with radiographic findings. Deirdre has exhausted nonoperative methods and was having significant limitations in daily function and desired better function and less pain. I discussed the technical details of a knee replacement. I explained the risks of the procedure to include, but not limited to, bleeding, infection, pain, stiffness, fracture, damage to nerves and vessels, damage to muscles and tendons, loosening, need for repeat procedure, blood clot and cardiopulmonary demise. Despite these risks, Deirdre elected to proceed. Findings: There was significant signs of arthritis throughout the knee involving all 3 compartments with notable synovitis. Procedure Description: Deirdre was greeted in the preoperative holding area where the correct side was identified and marked. The consent was reviewed with the patient and signed. The history and physical was updated. All questions were answered. Preoperative mediacations were administered: Acetaminophen 1000mg, Celebrex 400mg, and Gabapentin 300mg. An adductor canal block was then administered by the anesthesia team in the [facility]. She was taken back to the operating room. A spinal anesthestic was then administered. The patient was placed into the supine position on the operating room table. A nonsterile tourniquet was placed high onto the leg. Posts were placed for positioning during the procedure. All bony prominences were well padded. Prophylactic antibiotics in the form of Cefazolin were administered. 1g of Tranxemic Acid was given intravenously within 30 minutes of incision. The right leg was then prepped with Chloraprep and draped in a standard fashion with impervious stockinette. A second prep with Chloraprep was performed prior to application of Iodine impregnated skin protection. A timeout to confirm correct identity, side and site, procedure, allergies, anesthesia, and medical concerns was performed. With the knee in some flexion, a midline incision was made overlying the knee. Full thickness skin flaps were raised once the extensor mechanism was encountered. These were raised medially and laterally. Any bleeding was controlled with electrocautery. Once the extensor mechanism was fully exposed, a medial parapatellar arthrotomy was performed in a flexed position. All bleeding from the arthrotomy and the geniculate arteries was coagulated. A medial subperiosteal peel was performed with electrocautery to the midcoronal plane. The fat pad was removed while keeping the patellar tendon protected. The anterior distal femur synovium was removed for later visualization. The ACL and PCL were resected and the anterior horn of the lateral meniscus was transected. The knee was then flexed with the patella everted. Large osteophytes from the tibia were removed. Large osteophytes from the femur were removed. There was extensive synovitis throughout. A single starting pin was then placed 1cm anterior to the PCL insertion and the notch in the direction of the femoral head. The OrthoAlign device was applied over the pin. It was oriented to be in line with the epicondylar axis and the trochlear groove. It was then pinned into place. The navigation computer was then turned on and calibrated. The distal femur cut was set at 0 degrees varus and 3.5 degrees flexion. The distal femur cutting guide then was positioned for a 9mm cut. The distal femur was cut with an oscillating saw while protecting the soft tissues. The tibia was then addressed. The OrthoAlign device was placed over the tibial tubercle and medial tibia and secured into position. Once again, OrthoAlign was calibrated and then set for a 1 degree varus cut and 5 degrees of posterior slope. With this locked into position, the cut thickness stylus was used to assess cut thickness. The latera side, most involved side, was set for a 6mm cut, corresponding to about 8mm medially. This was then held in position and pinned into place with 2 additional pins and a cross pin for stability. The medial and lateral collateral ligaments were protected and the cut was performed. With this completed, it was assessed and noted to be of appropriate dimensions. The guide and OrthoAlign was removed. A spacer block was inserted and the knee was brought into extension to ensure enough space was present. . The Orthoalign gap balancing device was then placed in extension. This was used to ensure that the ligaments were properly balanced with up to 2 to 3 mm laxity laterally compared medially. The extension gap was measured as 19mm. The knee was then brought into 90 degrees of flexion and the ligament senior clinical research associate was once again placed. Under the same amount of force the flexion gap was measured. The Attune specific jig was placed and the flexion gap was made to match the extension gap. The femur was then sized as a size 6. The 4-in-1 cutting guide was the placed. An crow wing was used to confirm appropriate position of the anterior cut to avoid notching. This cutting guide was ensured to be flush on the cut surface and then pinned into place with headed pins. While protecting the soft tissues, quad tendon, and collateral ligaments, the anterior and posterior cuts were performed with a saw. The central two pins were removed and the posterior and anterior chamfers were cut next. The notch-cutting guide was placed. This was pinned to lateralize the femoral component as much as possible while keeping it flush on the cut surface. This was then pinned into position. A saw was used to make the notch cut. A rasp smoothed the cut surfaces. The medial and lateral menisci were removed. A trial femoral component was then inserted, impacted down to the cut surfaces, and the lug holes were drilled. A provisional trial tibial component was placed and the knee was brought through range of motion. There was noted to be excellent extension and flexion. There was no significant instability. The patella was tracking without thumbs. A size 7mm polyethylene component provided the best range of motion and stability with less than 2mm gapping with medial and lateral stress and full extension without significant hyperextension. The tibial cut surface was fully exposed. The tibia was then sized as a 5. The tibia had been previously marked during trialing to correspond to the center of the tibial component to help with rotation. The trial was aligned to this juan, approximately rotated to the medial 1/3rd of the tibial tubercle. The trial was pinned into place. The tibia was prepared with a reamer and a keel punch and lug holes. The knee was then brought into extension and the patella was measured as 23mm. Using the patellar clamp and cut guide, this was resected to a flat surface with at least 13mm of thickness remaining. The size 35 patella fit the best. This was oriented and then clamped into position. The lugs were drilled. The trial components were removed. The final components were opened on the back table. The periosteal and capsular tissues, especially posteriorly, around the knee were then systematically injected with a periarticular cocktail consisting of 246mg of Ropivacaine, 0.5mg of Epinephrine, 0.08mg of Clonidine, and 30mg of Ketorolac, diluted to 100cc. On the back table, with the implants opened, the cement was mixed. One batch of high viscosity cement was prepared with vacuum assistance. After the cement was ready a small amount was placed on the cut surface of the patella and the patellar button was clamped into position and held. While the cement was hardening, the cementless knee components were placed. Starting with the tibial component, the tibia was subluxed anteriorly and the lug holes of the component were lined up. The tibia was then impacted with an impactor and mallet until the tibial component was in contact with the tibia. Then, the femoral component was inserted. The lug holes were aligned and the component was impacted into position. The final polyethylene component was inserted. The knee was irrigated with Surgiphor Betadine solution. This was allowed to sit in the knee for 3 minutes and then it was thoroughly irrigated out with saline. After the cement had finally cured, approximately 15min, the clamp was removed from the patella and the knee was taken through range of motion. The patella was tracking with a no-thumbs technique. The capsule was then reapproximated with a No. 1 Vicryl at multiple locations. The capsule was finally closed with a No. 2 Stratafix, barbed suture. Deep tissues were then reapproximated with 0 Vicryl and 2-0 Vicryl. The skin was closed with a running 3-0 Monocryl in a subcuticular fashion. This was reinforced with skin glue. A Mepilex silver dressing was applied along with a [id number] MITUL wrap. A CryoCuff was applied. Deirdre was transferred to the hospital bed without difficulty an suffering no apparent complication. Deirdre has a good prognosis. Physical therapy will start today and without restrictions, weight-bearing as tolerated. Aspirin 81mg BID will be used for DVT prophylaxis.
[2024-04-29] MEDS: ceFAZolin 2 GM/50 ML BAG IVPB (12:58)
[2024-04-29] MEDS: TRANEXAMIC ACID/SOD. CHL. 1,000 MG/100 ML BAG 600 MG IVPB (13:10)
--- NOTE | 2024-04-29 13:21 | W.ANESNERVE ---
Nerve Block Single Injection Procedure Date and Time Date Performed: 04/29/24 Procedure Start: 11:58 Location Where Procedure Performed Procedure Location: Day Surgery Unit Reason Performed: Postoperative Analgesia Requesting Provider: Jef Hunt Timeout Performed Timeout Performed: Yes Monitoring Used ECG, Blood Pressure, SpO2 and See EMR for corresponding vital signs Sterility Sterility: Hand Hygiene, Surgical Cap, Surgical Mask, Sterile Gloves, Sterile Drape/Sheet and Chlorhexidine Sedation Given During Procedure Sedation Given (Indicate Dose Given): Versed IV Dose:: 2mg IVP Patient Mental Status Patient Mental Status: Sedate with meaningful communication Nerve Block 1st Nerve Block: Laterality: Right Block Type: Adductor Canal Ultrasound Image Saved?: Yes Needle / Catheter Used: 100mm SonoPlex II Local Anesthetic Bolus (Indicate Dose Given): Lidocaine used for local infiltration of skin and Ropivacaine 0.5% Dose:: 0.5%/20cc (100mg) Additives (Indicate Dose Given): Epinephrine to make 1:200,000 (5mcg/ml) Dose:: 100mcg and Decadron Dose:: 10mg PF Ultrasound: Sterile probe cover and gel used Nerve Stimulator: Not Used Paresthesia: None Procedure Tolerated: No Complications and Patient tolerated well Procedure Outcome: Successful Performed By: Moe Knapp
--- NOTE | 2024-04-29 14:07 | DSE_ITS ---
Date of service: 05/02/24 Time of Service: 12:40 Discharge Plan Disposition Patient Disposition: Home Condition: Good Discharge Details Reason For Visit: Right Knee DJD Admit Date/Time: 05/01/24 10:29 Admit Provider: Jef Hunt Attending Provider: Jef Hunt Primary Care Provider: Keke Tuttle Hospital Course Hospital Course: Patient was admitted to the medical/surgical floor following the procedure. The surgery was tolerated well without any notable medical, surgical, or anesthetic complications. Mobilization began postoperatively. She was voiding spontaneously. Patient has been able to pass flatus but has not had a bowel movement. Patient's nausea has fully resolved. Vitals were stable. Physical therapy worked with the patient and was cleared for discharge home. No acute medical issues. Pain was controlled on oral regimen. Home Meds and New Rx's Prescriptions: New meloxicam 15 mg tablet 15 mg PO DAILY Qty: 30 1RF Rx Instructions: Take one tablet daily for pain and inflammation aspirin 81 mg tablet,delayed release (DR/EC) 81 mg PO BID 30 Days Qty: 60 0RF acetaminophen 500 mg tablet 1,000 mg PO Q8H PRN Qty: 90 0RF Rx Instructions: Take two tablets up to every 8 hours as needed for pain hydromorphone 2 mg tablet 2 mg PO Q4H PRNQty: 18 0RF Rx Instructions: Take one tablet up to every 4 hours as needed for severe postoperative pain docusate sodium [Colace] 100 mg capsule 100 mg PO BID Qty: 30 0RF pantoprazole 40 mg tablet,delayed release (DR/EC) 40 mg PO DAILY 14 Days Qty: 14 0RF gabapentin 300 mg capsule 300 mg PO QHS Qty: 14 0RF Rx Instructions: Take one tablet at bedtime polyethylene glycol 3350 [Miralax] 17 gram powder in packet 17 g PO BID Qty: 14 0RF Continued simvastatin 20 mg tablet 20 mg PO DAILY coenzyme Q10 [Co Q-10] 100 mg capsule 100 mg PO DAILY Fish Oil 100-160-1,000 mg capsule 1 cap PO DAILY multivitamin Tablet 1 tab PO DAILY vitamin B complex Tablet 1 tab PO DAILY ascorbic acid (vitamin C) 500 mg tablet 500 mg PO DAILY venlafaxine 37.5 mg capsule,extended release 24hr 37.5 mg PO DAILY Healthy Eyes Lutein-Zeaxanthin 60 mg-13.5 mg- 15 mg-2 mg-6 mg capsule 1 cap PO DAILY ondansetron 4 mg tablet,disintegrating 4 mg PO Q6H PRN (Reason: nausea and vomiting) Qty: 20 0RF lorazepam 0.5 mg tablet 0.5 mg PO BID PRN (Reason: anxiety) Qty: 14 0RF Discharge Instructions Additional Instructions: Total Knee Discharge Instructions Activity: The most important activity is to walk and to work on gentle motion (both flexion and extension). You should try to take short walks a few times a day. It is important that when resting you work on keeping the knee straight. Avoid putting a pillow behind the knee as this will encourage flexion. Work on range of motion exercises as provided by Physical Therapy. - Start outpatient physical therapy within 2 weeks. - You should wear the VANNESSA hose on both legs for 2 weeks. You may remove these at night. You may also use any compression sock in place of the VANNESSA hose. - Utilize [employer] to review exercises, see videos on exercises and obtain basic information pertaining to your surgery and your recovery. Dressing: Remove the Jeff wrap by 2 days after your surgery and put on the VANNESSA stocking given to you from the hospital. Keep the surgical dressing (underneath the JEFF wrap) in place for at least one week. After the first week it may be removed and replaced with light gauze and tape or nothing. The wound and dressing may get wet after 3 days but avoid soaking the dressing or otherwise it will need to be changed. Many people prefer covering the dressing with cling wrap (saran wrap) to minimize it from getting soaked. If it gets wet, just pat dry. If it starts to peel off then it will need to be changed. Medications: - You should take Tylenol and anti-inflammatory Meloxicam as your primary pain control medications. If the Meloxicam is too expensive or not covered, please call the office for another alternative (Advil/Ibuprofen or Naproxen/Aleve) - You have been prescribed a stronger pain medication Hydromorphone for breakthrough pain, take as needed as prescribed. - You have also been prescribed a stomach acid reduction agent Pantoprozole to help reduce stomach acid and reflux. - You have been prescribed Gabapentin to take at night for restlessness and nerve pain. - You will be taking Aspirin 81mg twice a day for DVT prevention unless instructed otherwise. - Due to your constipation you should take Colace and Miralax (which have been prescribed; but are also available [id number]). It takes most people 3-4 days to have a bowel movement. - Contact orthopedic office on Sunday to update on constipation. Follow-up: 2 weeks If you have any acute concerns or questions, please do not hesitate to contact the office at [phone]. You may contact Dr. Hunt with any questions after hours through the hospital at [phone] or on his cell phone at [phone]. Stand Alone Forms: Anesthesia Discharge Inst., Anes.Nerve Block Instructions, Rony Bradshaw ([facility]U), Nursing Discharge Form Referrals: Keke Tuttle [Primary Care Provider] - (Please call PCP to follow up within 1-2 weeks. ) Jef Hunt MD [[facility] STAFF PHYSICIAN] - (Please call to make a follow up appointment within 2 weeks) Activity:: Activity as Tolerated Equipment/Supplies:: Walker Diet:: As Tolerated Discharge Orders Discharge Orders: Discharge Order (Routine); Ordered 05/02/24 Ordered By: Bindu Aj Discharge Data Discharge Date/Time-TO BE ENTERED AT DEPARTURE: 05/02/24 14:15 DS: Summary Time Spent with Patient providing and/or coordinating discharge services: Less than 30 minutes Status at Discharge Functional status at discharge: uses cane/walker Overall status at discharge: patient is progressing back to baseline Mental Status: mental status grossly normal Speech and Movement: speech and movement normal Mood: congruent mood Affect: normal affect Quality:SDOH Health Related Social Needs: No Data to Display Exam Const General: cooperative, healthy appearing, comfortable and no acute distress Resp Effort & Inspection: normal respiratory effort and able to speak in complete sentences Extrem Right lower extremity: normal to inspection and knee Other: Right knee examination: Mepilex is still in place. VANNESSA stockings are also noted. Ecchymosis is noted diffusely about the knee primarily on the lateral a spect. Sensation to light touch is intact. Patient is able to demonstrate active knee extension and flexion just beyond 90 degrees without significant discomfort. Psych Mental Status: mental status grossly normal Speech and Movement: speech and movement normal Mood: congruent mood Affect: normal affect DS: Data Vitals/I&O Vitals and I&O: Vital Signs Temperature 97.3 F L 04/29/24 12:10 Temperature Source Temporal Artery Scan 04/29/24 12:10 Pulse 86 04/29/24 12:30 Pulse Rhythm Regular 04/29/24 10:20 Respiratory Rate 18 04/29/24 12:30 Respiratory Depth Normal 04/29/24 10:20 Blood Pressure 144/61 H 04/29/24 12:30 Blood Pressure Mean 88 04/29/24 12:30 Blood Pressure Position Supine 04/29/24 12:30 Pulse Oximetry 95 04/29/24 12:30 Oxygen Delivery Method Room Air 04/29/24 12:30 Oxygen Flow Rate 0 04/29/24 12:30 Pain Level 0 04/29/24 12:30 Comment RN at bedside for 30 minutes post procedure per unit protocol, VS assessed q10 minutes for 30 minutes. Patient to remain on continuous cardiac and spO2 monitoring with central monitoring connected until patient is transferred to OR. 04/29/24 12:10 Intake & Output 04/28/24 04/29/24 04/29/24 23:59 11:59 23:59 Intake Total 150 / 150 Output Total 150 / 150 Balance 0 / 0 Weight 195 lb 5.273 oz Intake: IV 150 / 150 Output: Estimated Blood Loss 150 / 150 Other: Urine Color Pale Yellow Urine Appearance Clear Urine Odor None Comment per pt report Voiding Methods Toilet PFSH All Active Problems (Updated 05/03/24 @ 00:02 by [employer]) Constipation (Acute) History of total right knee replacement (Acute 04/29/24) Urinary incontinence (Acute) Sensorineural hearing loss (Acute) Obesity (Chronic) Hyperlipidemia (Acute) Diverticular disease of colon (Acute) COPD (chronic obstructive pulmonary disease) (Chronic) Medical History (Updated 05/03/24 @ 00:02 by [employer]) Nicotine dependence Allergic rhinitis Surgical History (Updated 05/03/24 @ 00:02 by [employer]) History of total left knee replacement (01/30/24) H/O shoulder surgery (L) History of delivery Hx of tonsillectomy History of right oophorectomy History of appendectomy 1975 History of carpal tunnel release 01/03/13, then again 02/14/13 Social History Smoking/Tobacco Use Status: Current every day Tobacco Type: cigarettes Smoking risk assessment performed?: Yes Alcohol Intake: former Drug use: Never Substance use type: does not use Housing: house Do you feel safe at home: Yes Do you feel safe in your relationship?: Yes Time Spent with Patient Time Spent with Patient: <45 minutes Time was spent: preparing to see the patient(eg.review tests), ordering medications,tests, procedures, indepentently interpreting results and counseling the patient
[2024-04-29] MEDS: fentaNYL 100 MCG/2 ML VIAL IVP ×2 (14:50→14:55)
[2024-04-29] MEDS: Normal Saline 10 ML VIAL IJ (15:12)
[2024-04-29] MEDS: HYDROmorphone 2 MG/ML SYR IVP (15:12)
--- NOTE | 2024-04-29 15:55 | W.ANESPOSTOP ---
Postoperative Evaluation Date, Time and Location Date Performed: 04/29/24 Time Performed: 15:56 Patient Location: Med/Surg Vital Signs Most Recent Imported Vital Signs: Most Recent Vital Signs Temp Pulse Resp BP Pulse Ox 36 C L 86 16 136/70 96 04/29/24 15:51 04/29/24 15:51 04/29/24 15:51 04/29/24 15:51 04/29/24 15:51 Pain Score Most Recent Pain Score: Most Recent Pain Score Pain Level 1 04/29/24 15:51 Assessment Mental Status: Awake (Alert & Oriented to Patient Baseline) Airway and Respiratory Function: Patent airway with normal (patient baseline) respiratory exam Cardiovascular Function: Hemodynamically Stable Hydration Status: Adequately Hydrated Nausea & Vomiting: No Nausea or Vomiting Pain: Pain is tolerable per patient Peripheral Nerve Block: Regional nerve block not resolved at time of post operative discharge
[2024-04-29] MEDS: Ondansetron 4 MG/2 ML VIAL IVP ×2 (16:13→22:07)
[2024-04-29] MEDS: Normal Saline Flush 10 ML SYR IV ×4 (16:14→22:08)
--- NOTE | 2024-04-29 18:01 | IN_ITS ---
PT Notes Visit Reasons: Right Knee DJD Inpatient Physical Therapy Evaluation Referring Doctor: Dr. Hunt PT Orders: PT CONSULT for safe discharge to home Precautions: WBAT Patient Profile/Admitting Diagnosis:? The patient is a 73yo female adm on 04/29/2024 from day surgical unit status post right TKA due to OA. Patient admitted for bowel management in prep for discharge to home Past Medical History: s/p L TKA 11/2023; COPD, diverticular disease, hyperlipidemia, obesity, urinary incontinence hard of hearing, OA Social History/Home Situation: Lives in a log home with no steps to enter 1 level. Independent ADL ambulation, meal prep, med management. 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 Patient reports she has a commode over her toilet. DME: [facility] [employer] Subjective: I am staying until I have a bowel movement. After my last surgery I went 3 weeks without a bowel movement and ended up in the hospital with an ob struction. My knee feels okay. Objective: Patient semireclined in bed agreeable to participate in evaluation Mental Status: Patient is alert and oriented x 4. Pain: Right knee 3 out of 5 on numeric pain scale Vital Signs: Monitored by nursing ROM/Strength: Upper extremities:WNL Lower extremities: Right knee 5 to approximate 95 degrees AROM; Right Quad 3- /5 positive quad lag; fair quad set with slight glute and hamstring activation for compensation Sensation: Intact Soft tissue/edema: Dressing and Jeff bandage in place to right lower extremity; incision not visualized Bed Mobility: Supine to sit contact-guard assist; sit to supine min assist for right lower extremity Tranfers: Sit to stand contact-guard assist with cues for hand placement to push up from surface Gait: Ambulated 40 feet with rolling walker reciprocal gait pattern slightly antalgic on right, required cues for upright posture to reduce forward flexion of trunk. Balance: good with UE support [facility] AM-PAC 6 clicks Basic Mobility Inpatient Short Form: Raw Score:?19? CMS Score:41.77% disability Informed Consent/Education:? Patient instructed in purpose of PT consult and plan of care and is agreeable Assessment:? Patient is a 73? year old female adm on April 29, 2024 s/p right TKA due to OA.? She was admitted to hospital for bowel management due to history of bowel obstruction post left TKA in November 2023. Patient presents with pain, decreased strength and ROM, decreased functional mobility, decreased balance and difficulty with ambulation. Patient with 1 episode of vomiting at end of session. The patient would benefit from skilled inpatient services to improve these impairments to maximize function and safety. Patient is assessed as:??? Moderate 51556??complexity based on the following: History: Patient is 73-year-old female admitted status post right TKA by Dr. Hunt with history of bowel obstruction. Examination: see above Presentation: Stable and uncomplicated? Decision Making:Moderate (1-2 history, 2-3 exam, evolving, ) Physical Therapy Goals: 1 week Able to get in/out of bed independent. Able to perform sit to/from stand independent. Able to walk > 250 feet with rolling walker Independent. Perform 10 straight leg raises right lower extremity independently without quad lag Increased right knee active range of motion 0 to >/= to 110 degrees Independent with home exercise program Plan of Care/Treatment Plan: 1-2x/day, 7 days/week x 1 week. Plan of care has been reviewed with the [employer] providing the service under Physical Therapy direction. Initiate Physical Therapy intervention for strengthening, bed mobility, transfers, gait, stairs, balance training, use of assistive device. DISCHARGE RECOMMENDATIONS: Home with PT when medically stable Billing Charges: Treatment Units Time Duration Manual Therapy(06158) Hands-on techniques to modulate pain increase joint range of motion reduce or eliminate soft tissue swelling, inflammation, or restriction facilitate relaxation and improve contractile and non-contractile tissue extensibility ? ? Therapeutic Procedures (91382) Instruction in therapeutic exercises to develop strength and endurance, range of motion and flexibility. HEP instruction and review: Provided skilled instruction in proper exercise performance: Provided skilled manual cues to facilitate proper muscle recruitment and/or movement pattern 1 13 min Neurological Re-Education(30430) To improve balance, coordination, kinesthetic and proprioceptive sensations. ? ? Ultrasound(35463) To promote healing. ? ? Gait Training(80498) ? ? Therapeutic Activity(28873) Instruction in dynamic activities with one on one patient contact by the provider to improve functional performance as follows: ?1 ?14mins Self Care Training(96464) ? ? E-Stim (Attended)(59023) ? ? Low IE(37393) Mod IE(69239) 1 ? ?20 min High IE(66829) ? ? Time Coded Treatment Time 1 ? 20 mins Total Treatment Time 2 ? 25 mins I certify the need for these services as being medically necessary and skilled as furnished under this plan of treatment while under my care. Please sign and return within 14 days if you agree with the plan of care listed below.? Thank you for this referral! ? Referring Physician? Date
[2024-04-29] MEDS: ceFAZolin 1 GM/50 ML BAG IVPB (18:20)
[2024-04-29] MEDS: Aspirin E.C. 81 MG TABEC PO (19:39)
[2024-04-29] MEDS: Simvastatin 20 MG TAB PO (19:39)
[2024-04-29] MEDS: Docusate Sodium 100 MG CAP PO (19:39)
[2024-04-29] MEDS: HYDROmorphone 2 MG/ML SYR 0.5 MG IVP (21:07)
[2024-04-30] MEDS: ceFAZolin 1 GM/50 ML BAG IVPB ×2 (02:13→11:08)
[2024-04-30] MEDS: Ondansetron O.D.T. 4 MG TABEF PO (02:26)
[2024-04-30] MEDS: HYDROmorphone 2 MG/ML SYR 0.5 MG IVP (03:01)
[2024-04-30 03:30] VITALS: BP 118/76; PULSE 78; RESP 20; TEMP 36.2; O2SAT 95
[2024-04-30 07:36] VITALS: BP 122/60; PULSE 80; RESP 17; TEMP 36.4; O2SAT 92
[2024-04-30] MEDS: Ondansetron 4 MG/2 ML VIAL IVP (07:56)
[2024-04-30] MEDS: Normal Saline Flush 10 ML SYR IVP ×2 (07:56→09:34)
[2024-04-30] MEDS: Meloxicam 15 MG TAB PO (08:03)
[2024-04-30] MEDS: Multivitamin TAB 1 TAB PO (08:04)
[2024-04-30] MEDS: Dexamethasone 4 MG TAB PO (08:04)
[2024-04-30] MEDS: Docusate Sodium 100 MG CAP PO ×2 (08:04→19:43)
[2024-04-30] MEDS: Aspirin E.C. 81 MG TABEC PO ×2 (08:04→19:44)
[2024-04-30] MEDS: Venlafaxine 37.5 MG CAPCR PO (08:05)
[2024-04-30] MEDS: Pantoprazole 40 MG TABCR PO (08:05)
[2024-04-30] MEDS: Acetaminophen 500 MG TAB 1000 MG PO ×3 (08:05→19:43)
[2024-04-30] MEDS: Polyethylene Glycol 3350 17 GM PACKET PO ×2 (08:06→19:43)
[2024-04-30] MEDS: Dexamethasone 4 MG/ML VIAL IVP (09:34)
[2024-04-30] MEDS: Lactated Ringers 1,000 ML 200 ML IV (09:34)
[2024-04-30] MEDS: Promethazine 25 MG TAB PO ×3 (09:35→21:47)
--- NOTE | 2024-04-30 09:50 | PT.INTREAT ---
PT Notes Visit Reasons: Right Knee DJD Inpatient Physical Therapy Treatment Note [facility] Date: 04/30/2024 PRECAUTIONS: WBAT on the R LE with AD. SUBJECTIVE: Still feels nauseous, vomitted 12x since last night. Has not been able to eat anything since. No vomitting episode throughout the morning session with PT. Reported pain in the front of R knee with pain level less than 5/10. Motivated to participate in PT session despite symptoms. Nausea resolved when patient was seen in the afternoon for second session. OBJECTIVE: MITUL?wrap on. IV through L brachium. ? PAIN: 5/10 0n the R knee during stand to sit transition VITALS: Closely monitored bynursing staff ? BED MOBILITY/TRANSFERS: Minimal cueing provided for use of B hands as needed for support, movement sequence, AD management, and posture to reduce fall risk and minimize pain report? Sit-supine: supervision? Sit-stand: stand by assist with FWW? Stand-sit: Stand by assist with FWW? Bed-Chair: stand by assist with FWW ? Chair-bed: stand by assist with FWW ? GAIT? Assistive Device: FWW? Weight bearing: WBAT R LE Assist: Stand by assist ? Distance:? 150 feet + 150 feet. Step-through reciprocal heel-toe gait pattern.? Covered a distance of 600 feet in the afternoon/ ? Deviation: Mildly antalgic. No antlagia seen. Cues: Minimal verbal cues for AD management, posture, weight distribution? STAIRS: Up and down 6 x 4 inch steps while holding onto B rails, stand by assist provided ? Therapeutic Exercises: Direct one-on-one instruction in therapeutic exercises to develop strength, endurance, range of motion and flexibility. Trained patient with correct performance of exercises below to maximize motor control, joint flexibility, soft tissue extensibility of the R knee musculature: Access Code: [email or web address] URL: [email or web address] Date: 04/30/2024 Prepared by: Crissy Wagner Exercises - Supine Quad Set - 1 x daily - 7 x weekly - 1 sets - 10 reps - 5 hold - Supine Heel Slide - 1 x daily - 7 x weekly - 1 sets - 10 reps - 5 hold - Supine Ankle Pumps - 1 x daily - 7 x weekly - 1 sets - 10 reps - 5 hold - Small Range Straight Leg Raise - 1 x daily - 7 x weekly - 1 sets - 10 reps - 5 hold - Seated March - 1 x daily - 7 x weekly - 1 sets - 10 reps - 5 hold ASSESSMENT:? Nausea resolved when patient was seen for afternoon session. Pain remained manageable except fro when patient sat back down dieudonne edge f bed after walking 600 feet around [employer] hallway. Patient remains unable to void stool. Now only requires stand by assist for all mobility ADl performance. Exercise performance limited by pain report. Patient already has equipment for home. Patient is agreeable with increasing frequency of walking to assist with narcotic-induced constipation recurrence. PLAN: Progress mobility level, facilitate mastery of HEP, work on post-op rehab for R TKA. TREATMENT CODE/TIME: Session 1-- 13610 x 30 minutes for 2 units, 63443 x 17 minutes for 1 unit (9:50-10:37) Session 2-- 90878 x 25 minutes for 2 units, 88874 x 13 minutes for 1 unit (14:06-14:14). DISCHARGE RECOMMENDATION: Home when medically cleared by orthopedic surgeon. Recommend outpatient PT services in order to optimize functional mobility outcomes and facilitate return to independent community ambulation without an assistive device.
--- NOTE | 2024-04-30 10:05 | NUR.NOTE ---
Nursing Note: Pt having severe n/v that has been uncontrolled all night. Notified surgeon, who gave new orders, which seem to be helping so far. Will monitor closely.
--- NOTE | 2024-04-30 12:44 | NUR.NOTE ---
Nursing Note: Pt has not vomited since this morning. Now asking for a cup of coffee, discussed with her and nursing and pt decided together to wait to have anything like coffee until she is tolerating food well.
--- NOTE | 2024-04-30 13:51 | W.PM.PROGNOT ---
Date of Service Date of service: 04/30/24 Time of Service: 13:15 Assessment and Plan Assessment and plan (1) History of total right knee replacement: Status: Acute Assessment and plan: POD#1 s/p R TKA. Having some pain but refusing pain meds due to nausea and ongoing constipation. (2) Post-operative nausea and vomiting: Status: Acute Assessment and plan: Promethazine. IV Ativan and Ondansetron as needed. (3) Constipation: Status: Acute Assessment and plan: Continue with aggressive bowel regimen. Subjective Subjective Interval history since last seen: Deirdre reports to be doing much better but had a tough night last night with nausea and emesis. After receiving Phenergan this morning that has resolved. She has some pain in the knee but is declining any pain medications. She denies any abdominal pain but no flatus. No chest pain or shortness of breath. Exam Narrative Exam Narrative: Sitting up in the bed. NAD. AAOx3. Knee dressing is c/d/i. Able to actively flex and extend the knee. SILT DP/SP/Tib. +DP/PT Objective Last Vital Signs Temp 36.4 C L 04/30/24 07:36 Pulse 80 04/30/24 07:36 Resp 17 04/30/24 07:36 BP 122/60 04/30/24 07:36 Pulse Ox 92 04/30/24 07:36 Time Spent with Patient Time Spent with Patient: 25-34 minutes Time was spent: preparing to see the patient(eg.review tests), obtaining and/or reviewing separately otained hiistory and counseling the patient
--- NOTE | 2024-04-30 14:09 | PHA.REVIEW2 ---
Pharmacy Admission Review Admission Clinical Review Admission Pharmacy Review: epinephrine Adverse Reaction (Verified 04/29/24 10:58) Other (See Comment) topical epinephrine Allergy (Uncoded 04/29/24 10:58) Other (See Comment) levofloxacin Adverse Reaction (Uncoded 04/29/24 10:58) tendonitis Resuscitation Status Full Code Height 5 ft 4 in Weight 88.6 kg Comments Comments/Follow Ups: POD#1 right knee DJD Pharmacy Admission Review Renal Dosing Medications needing adjustments: Reviewed (CrCl 52.38 mL/min) List of meds needing interventions: Current medications are okay Anticoagulation DVT Prophylaxis: Reviewed (SCDs/TEDs) Medications: Aspirin (81mg BID) Opiate Usage Evaluate Pain Scale/Pains Meds: Reviewed (IV/PO hydromorphone PRN - 2 IVP doses given) Scheduled Bowel Reg ordered if on Opiates?: Yes (docusate/Miralax) Relevant Labs Electrolytes, C-Reactive P, ESR: Reviewed (No new labs for today) Cardiac Review BP, HR, EF%: Reviewed (BP and HR WNL) QTc Review QTc: Reviewed (No EKG on file) IV to PO Switch IV Medications: Reviewed (Benadryl, hydromorphone, ondansetron) Home Meds Home Med List reviewed: Reviewed Relevent Home Meds Not ordered & why?: CoQ-10 Current Meds Current Medication Order Review: Intervened Comments: Added IV admission order set Comments Comments/Follow Ups: POD#1 right knee DJD
--- NOTE | 2024-04-30 14:17 | NUR.NOTE ---
Nursing Note:Tolerating clear liquids and saltines
--- NOTE | 2024-04-30 15:18 | NUR.NOTE ---
Nursing Note: Dr. Hunt in to see pt again today. She has not had any further n/v since this morning, not passing gas yet. Will start gentle bowel meds after supper. Pt agrees with plan.
[2024-04-30 15:35] VITALS: BP 132/66; PULSE 69; RESP 19; TEMP 36.9; O2SAT 92
[2024-04-30] MEDS: HYDROmorphone 2 MG TAB PO ×2 (15:47→21:48)
--- NOTE | 2024-04-30 16:10 | INITIAL_ITS ---
Date of service: 04/30/24 Time of Service: 16:11 Care Management Initial Assmt Initial Assessment Reason for Hospitalization: Right Knee DJD Functional Status/Living Situation Patient Presentation: Ongoing pain and nausea, declining pain medication due to emesis. Town of Residence: [place] Significant Other/Family: Local Caregiver/Guardian: Juan Francisco Banda-Nephew Employment Status: Retired Medications Medication Management: No Issues/Barriers identified Physical Functioning/Mobility Assistive Device: FWW Advance Directives Advance Directives: Do you have an Advance Directive: AD On File at [facility]: N 02/15/24 10:43 Date Asked 04/29/24 04/28/24 14:33 AD Date Reviewed COLST On File at [facility] COLST Date Scanned Code Status Resuscitation Status Full Code Insurance Coverage/Financial Issues Insurance: [facility], Supplemental Care Team Visit Care Team Role Provider Type Keke Tuttle Primary Care Provider NON-[facility] STAFF PHYSICIAN InPatient [facility] Other Providers OTHER Jef Hunt MD Admit Provider [facility] STAFF PHYSICIAN Attending Provider Discharge Potential Discharge Needs: PT Evaluation, PCP F/U Appt and Surgical F/U Appt Anticipated Barriers to Discharge: None Identified Patient/Family Education Needs: Review discharge instructions, discuss Ask Me Three Transportation: Private vehicle Plan: Deirdre will return home with outpatient follow up and new orders for HH/PT, per . She will transport home via private vehicle with family. PFSH All Active Problems (Updated 04/30/24 @ 21:51 by Jef Hunt MD) Constipation (Acute) Post-operative nausea and vomiting (Acute) History of total right knee replacement (Acute 04/29/24) Urinary incontinence (Acute) Sensorineural hearing loss (Acute) Obesity (Chronic) Hyperlipidemia (Acute) Diverticular disease of colon (Acute) COPD (chronic obstructive pulmonary disease) (Chronic) Medical History (Updated 04/30/24 @ 21:51 by Jef Hunt MD) Nicotine dependence Allergic rhinitis Surgical History (Updated 04/30/24 @ 13:40 by Edgar Mchugh RN) History of total left knee replacement (01/30/24) H/O shoulder surgery (L) History of delivery Hx of tonsillectomy History of right oophorectomy History of appendectomy 1975 History of carpal tunnel release 01/03/13, then again 02/14/13 Social History Smoking/Tobacco Use Status: Current every day Tobacco Type: cigarettes Smoking risk assessment performed?: Yes Alcohol Intake: former Drug use: Never Substance use type: does not use Housing: house Do you feel safe at home: Yes Do you feel safe in your relationship?: Yes SDOH(Care Management) Screening Will the Patient Participate in the Screening?: Declined to provide Anticipated HH Services Anticipated HH Services at Discharge [facility] ([facility]E [facility]) Services Needed.
--- NOTE | 2024-04-30 16:20 | CHAPLAIN ---
Deirdre was sitting on the edge of the bed, getting ready to work with PT when I visit. [place] She hasn't told many people that she was having this surgery. Her nephew visit yesterday.
[2024-04-30 19:27] VITALS: BP 106/42; PULSE 82; RESP 19; TEMP 36.6; O2SAT 92
[2024-04-30] MEDS: Simvastatin 20 MG TAB PO (19:43)
[2024-04-30] MEDS: Gabapentin 300 MG CAP PO (19:44)
[2024-04-30 23:21] VITALS: BP 116/53; PULSE 80; RESP 19; TEMP 36.7; O2SAT 94
[2024-05-01] MEDS: LORazepam 0.5 MG TAB PO (00:23)
[2024-05-01 02:58] VITALS: BP 112/49; PULSE 86; RESP 18; TEMP 36.5; O2SAT 92
[2024-05-01 06:53] LABS: HCT 31.6 % (36.0-46.0); HGB 10.2 g/dL (11.2-15.7); MCH 31.6 pg (27.0-33.0); MCHC 32.3 % (32.0-36.0); MCV 98 fL (80-95); MPV 11.2 fL (8.0-11.0); Platelet Count 186 10^3/uL (130-400); RBC 3.23 10^6/uL (3.93-5.22); RDW 14.6 % (11.7-14.6); RDW-SD 52.8 fL; WBC 12.26 10^3/uL (4.4-10.8)
[2024-05-01 07:16] LABS: Anion Gap 8.8 mmol/L (3-11); BUN 20 mg/dL (7-18); CO2 29.2 mmol/L (21.0-32.0); CREATININE 0.8 mg/dL (0.55-1.02); Calcium 8.8 mg/dL (8.5-10.1); Chloride 108 mmol/L (98-107); Estimated GFR 76.79 (mL/min/1.73m2); Glucose 105 mg/dL (74-106); Potassium 4.2 mmol/L (3.5-5.1); Sodium 146 mmol/L (136-145)
[2024-05-01 07:23] VITALS: BP 116/60; PULSE 85; RESP 18; TEMP 36.9; O2SAT 100
[2024-05-01] MEDS: Promethazine 25 MG TAB PO (07:33)
[2024-05-01] MEDS: Normal Saline Flush 10 ML SYR IVP ×2 (07:34→19:46)
[2024-05-01] MEDS: Polyethylene Glycol 3350 17 GM PACKET PO ×2 (07:34→19:46)
[2024-05-01] MEDS: HYDROmorphone 2 MG TAB PO ×5 (07:36→22:37)
[2024-05-01] MEDS: Pantoprazole 40 MG TABCR PO (07:37)
[2024-05-01] MEDS: Docusate Sodium 100 MG CAP PO ×2 (07:37→19:43)
[2024-05-01] MEDS: Meloxicam 15 MG TAB PO (07:37)
[2024-05-01] MEDS: Aspirin E.C. 81 MG TABEC PO ×2 (07:37→19:43)
[2024-05-01] MEDS: Vitamins B Comp w/C TAB 1 TAB PO (07:38)
[2024-05-01] MEDS: Venlafaxine 37.5 MG CAPCR PO (07:38)
[2024-05-01] MEDS: Acetaminophen 500 MG TAB 1000 MG PO ×3 (07:38→19:43)
[2024-05-01] MEDS: Ascorbic Acid 500 MG TAB PO (07:38)
[2024-05-01] MEDS: Multivitamin TAB 1 TAB PO (07:38)
[2024-05-01] MEDS: Beta-Carotene(A) w/C,E, & Minerals TAB 1 TAB PO (07:38)
[2024-05-01] MEDS: Omega-3 Fatty Acids 1000 MG CAP PO (07:38)
[2024-05-01] MEDS: Dexamethasone 4 MG TAB PO (08:00)
[2024-05-01 10:59] VITALS: BP 129/61; PULSE 79; RESP 18; TEMP 36.8; O2SAT 95
--- NOTE | 2024-05-01 12:54 | PTTR_ITS ---
PT Notes Visit Reasons: Right Knee DJD Inpatient Physical Therapy Treatment Note [facility] Date: 05/01/2024 PRECAUTIONS: WBAT on the R LE with AD. SUBJECTIVE: Pt reports she was in alot of pain all night that she took pain medication this morning. She reports she laid in bed with her RLE dangling off the edge all night. She stated she knew she shouldn't let it hang but at the time it was all she could do. Reported pain in the front of R knee with pain level 8/10. She reports she continues with the nausea and has not voided but is passing gas. She is agreeable to participate in PT session despite symptoms. OBJECTIVE: MITUL?wrap on RLE. TEDstocking to LLE; IV through L brachium. Session 2 patient with bilateral VANNESSA stockings in place with noted reduced edema ? PAIN: 8/10 0n the R knee during stand to sit transition ; arciniega splints right leg in Am ; this resolved during the afternoon session with she is on VITALS: Closely monitored by nursing staff ? BED MOBILITY/TRANSFERS: Minimal cueing provided for use of B hands as needed for support, movement sequence, AD management, and posture to reduce fall risk and minimize pain report? Sit-supine: supervision? with increased time to get RLE onto bed ? Sit-stand: stand by assist with FWW? Stand-sit: Stand by assist with FWW? Bed-Chair: stand by assist with FWW ? Chair-bed: stand by assist with FWW ? GAIT? Assistive Device: FWW? Weight bearing: WBAT R LE Assist: Stand by assist ? Distance:? 150 feet . Step-through reciprocal heel-toe gait pattern.? 250 feet x 1 during second session Deviation: Mildly antalgic RLE; with reduced knee flexion during swing phase during first session this resolved during second session with patient able to perform exaggerated hip flexion knee flexion to improve range of motion. ? Cues: Minimal verbal cues for AD management, posture, weight distribution?, Activation of quad at TKE heelstrike through mid stance. ? Therapeutic Exercises: Direct one-on-one instruction in therapeutic exercises to develop strength, endurance, range of motion and flexibility. Trained patient with correct performance of exercises below to maximize motor control, joint flexibility, soft tissue extensibility of the R knee musculature: Access Code: [email or web address] URL: [email or web address] Date: 04/30/2024 Prepared by: Crissy Wagner Exercises - Supine Quad Set - 1 x daily - 7 x weekly - 1 sets - 10 reps - 5 hold - Supine Heel Slide - 1 x daily - 7 x weekly - 1 sets - 10 reps - 5 hold - Supine Ankle Pumps - 1 x daily - 7 x weekly - 1 sets - 10 reps - 5 hold - Small Range Straight Leg Raise - 1 x daily - 7 x weekly - 1 sets - 10 reps - 5 hold - Seated March - 1 x daily - 7 x weekly - 1 sets - 10 reps - 5 hold ASSESSMENT: Patient remains limited by quad lag requiring assistance during small range straight leg raise. She she demonstrates reduction in edema at second session with use of elevation and ice and Vannessa stocking. Patient educated to continue elevation throughout the evening to continue to manage edema and reduce pain. He is able to perform reciprocal pattern with exaggerated hip and knee flexion to promote active range of motion right knee. PLAN: Progress mobility level, facilitate mastery of HEP, work on post-op rehab for R TKA. TREATMENT CODE/TIME: Session 1-- 18052 x 30 minutes for 2 units, 27887 x 12 minutes for 1 unit (10:43- 11:25) Session 2-- 00784 x 15 minutes for 1 units, 42010 x 11 minutes for 1 unit (14:36-15:02). DISCHARGE RECOMMENDATION: Home when medically cleared by orthopedic surgeon. Recommend outpatient PT services in order to optimize functional mobility outcomes and facilitate return to independent community ambulation without an assistive device.
[2024-05-01] MEDS: Bisacodyl 5 MG TABEC PO (14:55)
[2024-05-01 15:32] VITALS: BP 123/55; PULSE 83; RESP 16; TEMP 36.6; O2SAT 93
--- NOTE | 2024-05-01 17:15 | W.PM.PROGNOT ---
Date of Service Date of service: 05/01/24 Time of Service: 12:40 Assessment and Plan Assessment and plan (1) Post-operative nausea and vomiting: Status: Acute Assessment and plan: Improving. Recommend p.o. promethazine as long as the actively vomiting. (2) History of total right knee replacement: Status: Acute Assessment and plan: Postop day #2. Making progress. Having more pain. Will restart Dilaudid at a range from 2 to 4 mg to help out with her pain control. She is not having nausea with this medication. (3) Constipation: Status: Acute Assessment and plan: She did start having flatus today. No abdominal pain. Still no bowel movement. Continue with bowel meds. Subjective Subjective Interval history since last seen: Zohra has had no more recurrent nausea. However, she had notable pain last night. She did have some response to the medication, hydromorphone, without nausea. However, it did not completely take care of her pain. She has been passing some gas but no bowel movement. She is voiding spontaneously. No chest pain or shortness of breath. No significant abdominal pain. Exam Narrative Exam Narrative: Laying in the supine position in the hospital bed. No acute distress. Alert and orient x 3. Is Evaluation the right knee shows a clean dry and intact dressing. Mild ecchymosis seen laterally. She is able to activate the knee although does so with some hesitation with pain. Passive range of motion is briefly 5 to 90 degrees. Palpable DP and PT pulse. Sensation intact to light touch over the deep and superficial peroneal nerve and tibial nerve. Objective Last Vital Signs Temp 36.6 C 05/01/24 15:32 Pulse 83 05/01/24 15:32 Resp 16 05/01/24 15:32 BP 123/55 L 05/01/24 15:32 Pulse Ox 93 05/01/24 15:32 Laboratory Results - last 24 hr 05/01/24 06:28 WBC 12.26 H RBC 3.23 L Hgb 10.2 L Hct 31.6 L MCV 98 H MCH 31.6 MCHC 32.3 RDW 14.6 Plt Count 186 MPV 11.2 H Sodium 146 H Potassium 4.2 Chloride 108 H Carbon Dioxide 29.2 Anion Gap 8.8 BUN 20 H Creatinine 0.8 Est GFR (CKD-EPI 2020) 76.79 Glucose 105 Calcium 8.8 Time Spent with Patient Time Spent with Patient: 25-34 minutes Time was spent: preparing to see the patient(eg.review tests), obtaining and/or reviewing separately otained hiistory, indepentently interpreting results and counseling the patient
[2024-05-01 19:12] VITALS: BP 111/45; PULSE 75; RESP 16; TEMP 36.6; O2SAT 94
[2024-05-01] MEDS: Simvastatin 20 MG TAB PO (19:43)
[2024-05-01] MEDS: Gabapentin 300 MG CAP PO (19:43)
[2024-05-01 23:11] VITALS: BP 112/52; PULSE 70; RESP 16; TEMP 36.4; O2SAT 94
[2024-05-02 03:12] VITALS: BP 119/60; PULSE 70; RESP 18; TEMP 36.5; O2SAT 92
[2024-05-02] MEDS: HYDROmorphone 2 MG TAB PO ×2 (07:15→13:20)
[2024-05-02 07:45] VITALS: BP 130/59; PULSE 73; RESP 17; TEMP 36.1; O2SAT 93
[2024-05-02] MEDS: Aspirin E.C. 81 MG TABEC PO (07:51)
[2024-05-02] MEDS: Polyethylene Glycol 3350 17 GM PACKET PO (07:51)
[2024-05-02] MEDS: Omega-3 Fatty Acids 1000 MG CAP PO (07:51)
[2024-05-02] MEDS: Ascorbic Acid 500 MG TAB PO (07:51)
[2024-05-02] MEDS: Dexamethasone 4 MG TAB PO (07:52)
[2024-05-02] MEDS: Meloxicam 15 MG TAB PO (07:52)
[2024-05-02] MEDS: Acetaminophen 500 MG TAB 1000 MG PO ×2 (07:52→13:20)
[2024-05-02] MEDS: Vitamins B Comp w/C TAB 1 TAB PO (07:52)
[2024-05-02] MEDS: Pantoprazole 40 MG TABCR PO (07:52)
[2024-05-02] MEDS: Venlafaxine 37.5 MG CAPCR PO (07:52)
[2024-05-02] MEDS: Beta-Carotene(A) w/C,E, & Minerals TAB 1 TAB PO (07:52)
[2024-05-02] MEDS: Docusate Sodium 100 MG CAP PO (07:52)
[2024-05-02] MEDS: Bisacodyl 5 MG TABEC PO (07:53)
[2024-05-02] MEDS: Normal Saline Flush 10 ML SYR IVP (07:53)
[2024-05-02] MEDS: Multivitamin TAB 1 TAB PO (07:53)
[2024-05-02 11:17] VITALS: BP 108/53; PULSE 68; RESP 18; TEMP 36.1; O2SAT 94
--- NOTE | 2024-05-02 11:43 | PT.INTREAT ---
PT Notes Visit Reasons: Right Knee DJD Inpatient Physical Therapy Treatment Note [facility] Date: 05/02/2024 PRECAUTIONS: WBAT on the R LE with AD. SUBJECTIVE: Pt reports she has less pain in her knee and she still has not had a bowel movement. She reports she is able to eat and now has rumbling in her abdomen OBJECTIVE: bilateral VANNESSA stockings in place with noted reduced edema ? PAIN: 10 right knee VITALS: Closely monitored by nursing staff ? BED MOBILITY/TRANSFERS: Minimal cueing provided for use of B hands as needed for support, movement sequence, AD management, and posture to reduce fall risk and minimize pain report? Sit-supine: independent? Sit-stand: independent? Stand-sit: independent? Bed-Chair: independent FWW ? Chair-bed: independent FWW ? GAIT? Assistive Device: FWW? Weight bearing: WBAT R LE Assist: Stand by assist ? Distance:? 300 feet . Step-through reciprocal heel-toe gait pattern.? Deviation:reduced knee flexion( pt prompted to perform exaggerated knee and hip flexion during swing phase to increase AROM ? Cues: ? Therapeutic Exercises: Direct one-on-one instruction in therapeutic exercises to develop strength, endurance, range of motion and flexibility. Trained patient with correct performance of exercises below to maximize motor control, joint flexibility, soft tissue extensibility of the R knee musculature: Access Code: [email or web address] URL: [email or web address] Date: 04/30/2024 Prepared by: Crissy Wagner Exercises - Supine Quad Set - 1 x daily - 7 x weekly - 1 sets - 10 reps - 5 hold - Supine Heel Slide - 1 x daily - 7 x weekly - 1 sets - 10 reps - 5 hold - Supine Ankle Pumps - 1 x daily - 7 x weekly - 1 sets - 10 reps - 5 hold - Small Range Straight Leg Raise - 1 x daily - 7 x weekly - 1 sets - 10 reps - 5 hold - Seated March - 1 x daily - 7 x weekly - 1 sets - 10 reps - 5 hold ASSESSMENT: Pt demonstrates no quad lag during short range SLR. Pt able to activate QS in sitting, as well. Pt educated to perfrom seated Heel slides with towel under foot and seated QS 10 reps with 5 sec hold . She also participated in tap up to 6 step with RLE x 10 reps to increase AROM. Pt AROM 3-102 degrees. She demonstrates impaired hamstring length. PLAN: Progress mobility level, facilitate mastery of HEP, work on post-op rehab for R TKA. TREATMENT CODE/TIME: Session 1-- 85389 x 11 minutes for 1 units, [id number] x 17 minutes for 1 unit ([id number]) DISCHARGE RECOMMENDATION: Home when medically cleared by orthopedic surgeon. Recommend outpatient PT services in order to optimize functional mobility outcomes and facilitate return to independent community ambulation without an assistive device.
--- NOTE | 2024-05-02 12:46 | PDOC.CMDIS ---
Date of service: 05/02/24 Time of Service: 12:46 LACE Index Scoring Tool Questions: Length of Stay (in days): 2 Was the patient admitted via the E.D.?: No E.D. Visits: 0 Answers: Total Score: 2 Risk of Readmission: Low Risk Care Management Discharge Plan Reason for Hospitalization: Right Knee DJD Discharge Plan: Deirdre will return home today with outpatient PT services. She will transport home via private vehicle by family. She will follow up with her PCP and discharge plan of care. Patient/Family Education Needs: Review discharge instructions and limitations, discussion of self care needs including ask me three. SDMA Health Related Social Needs: No Data to Display
== END 2024-05-02 14:15 | disposition home or self-care (01) | DRG 470 ==
LOC: SUR 15:13 → MS 18:52
PROVIDERS: Admitting Provider Student in an Organized Health Care Education/Training Program; PCP Internal Medicine; Visit Provider Student in an Organized Health Care Education/Training Program
PROC: 0SRC0JA Replacement of Right Knee Joint with Synthetic Substitute, Uncemented, Open Approach (ICD-10-PCS; CPT 27447; principal; 2024-04-29 14:00)
DX: M17.11 Unilateral primary osteoarthritis, right knee (principal); R11.2 Nausea with vomiting, unspecified; R32 Unspecified urinary incontinence; E78.5 Hyperlipidemia, unspecified; E66.9 Obesity, unspecified; K57.30 Diverticulosis of large intestine without perforation or abscess without bleeding; J44.9 Chronic obstructive pulmonary disease, unspecified; Z96.652 Presence of left artificial knee joint; F17.210 Nicotine dependence, cigarettes, uncomplicated; K59.00 Constipation, unspecified; Z68.33 Body mass index [BMI] 33.0-33.9, adult
CPT/HCPCS: 27447; 20985; 36415; 76942; 80048; 85027; 97110; 97162; 97530; C1776; J0171; J0690; J1100; J1170; J2001; J2250; J2371; J2401; J2405; J2704; J3010; J8540

== ENCOUNTER 2024-05-15 15:22 | Outpatient (CLI) | payer MEDICARE, OTHER, SELFPAY ==
--- NOTE | 2024-05-15 12:07 | DI.RAD_ITS ---
Exam(s) XR STANDING ALIGNMENT XR KNEE RT 1V EXAM: XR STANDING ALIGNMENT CLINICAL HISTORY: 1ST POST OP S/P R TKA. TECHNIQUE: 2D digital imaging was performed. Standing AP views were performed from the pelvis throu gh the ankles. COMPARISON: CR XR KNEE LT 1V from 02/15/2024 CR XR STANDING ALIGNMENT from 02/15/2024 CR XR KNEE RT 1V from 05/15/2024 FINDINGS: BONES: No acute fracture is present. No bony destructive lesion is seen. Enchondroma again noted in distal right femur. Leg length discrepancy: No significant overall leg length discrepancy. JOINTS: Knees: Bilateral total knee prostheses are unremarkable. The ankle joints are unremarkable. The hip joints are unremarkable. SOFT TISSUE: Normal. IMPRESSION: Bilateral total knee prostheses. No significant leg length discrepancy. DATA REPOSITORY: RADIATION DOSE DELIVERED:
== END 2024-05-15 15:23 | disposition home or self-care (01) ==
LOC: DIORS 15:23
PROVIDERS: PCP Internal Medicine; Referring Provider Internal Medicine; Visit Provider Physician Assistant
DX: Z96.651 Presence of right artificial knee joint (principal); Z47.1 Aftercare following joint replacement surgery
CPT/HCPCS: 73560; 77073

== ENCOUNTER → 2024-06-16 13:50 | Outpatient (BNVA) | payer MEDICARE, OTHER, SELFPAY | PROVIDERS: PCP Internal Medicine; Referring Provider Internal Medicine; Visit Provider Student in an Organized Health Care Education/Training Program | DX: Z47.1 Aftercare following joint replacement surgery (principal); Z96.651 Presence of right artificial knee joint | CPT/HCPCS: 99024 ==

== ENCOUNTER → 2024-07-28 12:56 | Outpatient (BNVA) | payer MEDICARE, OTHER, SELFPAY | PROVIDERS: PCP Internal Medicine; Referring Provider Internal Medicine; Visit Provider Student in an Organized Health Care Education/Training Program | DX: Z47.1 Aftercare following joint replacement surgery (principal); Z96.651 Presence of right artificial knee joint | CPT/HCPCS: 99024 ==

== ENCOUNTER 2025-04-06 14:42 | Outpatient (CLI) | payer MEDICARE, OTHER, SELFPAY ==
--- NOTE | 2025-04-06 11:30 | DI.RAD_ITS ---
Exam(s) XR KNEE LT 2V AP,LAT EXAM: XR KNEE LT 2V AP,LAT CLINICAL HISTORY: ANNUAL F/U TKA. TECHNIQUE: 2D digital imaging was performed. Two images were obtained. AP and lateral views were obtained. COMPARISON: CR XR KNEE LT 1V from 02/15/2024 CR XR STANDING ALIGNMENT from 02/15/2024 CR XR KNEE RT 1V from 05/15/2024 FINDINGS: BONES: There are stable post operative changes of a left total knee arthroplasty present. No fracture or dislocation. JOINTS: The orthopedic hardware is in good position. No evidence of hardware loosening. SOFT TISSUE: Normal. IMPRESSION: Stable left total knee arthroplasty. DATA REPOSITORY: RADIATION DOSE DELIVERED:
--- NOTE | 2025-04-06 11:30 | DI.RAD_ITS ---
Exam(s) XR KNEE RT 2V AP,LAT EXAM: XR KNEE RT 2V AP,LAT CLINICAL HISTORY: ANNUAL F/U R TKA. TECHNIQUE: 2D digital imaging was performed. Three views. COMPARISON: CR XR KNEE RT 1V from 05/15/2024 CR XR STANDING ALIGNMENT from 05/15/2024 CR XR KNEE LT 2V AP,LAT from 04/06/2025 FINDINGS: BONES: No acute fracture is present. No bony destructive lesion is seen. Stable appearance of benign sclerotic lesion in the distal femur. JOINTS: The knee prosthesis is normally aligned. No joint effusion is seen. SOFT TISSUE: Normal. IMPRESSION: Stable appearance of right knee prosthesis. DATA REPOSITORY: RADIATION DOSE DELIVERED:
== END 2025-04-06 14:43 | disposition home or self-care (01) ==
LOC: DIORS 14:42
PROVIDERS: PCP Internal Medicine; Visit Provider Physician Assistant
DX: M70.51 Other bursitis of knee, right knee (principal); M70.52 Other bursitis of knee, left knee; Z96.653 Presence of artificial knee joint, bilateral
CPT/HCPCS: 99212; 73560